=== PATIENT | female | born 1970 | race Caucasian/White ===

== ENCOUNTER 2017-08-24 09:04 | Emergency (ER) | payer BC, OTHER ==
[~2017-08-24] VITALS: Ht 157.5 cm; Wt 79.1 kg
[~2017-08-24 09:04] MED LIST: ASCA500 PO
[2017-08-24 09:13] VITALS: TEMP 36.8; Ht 157.5 cm; Wt 79.1 kg
[2017-08-24] MEDS ORDERED: IBUP-103 PO (09:45)
[2017-08-24] MEDS ORDERED: CETI10TA10 PO (09:45)
[2017-08-24] MEDS ORDERED: HYDR12.56 PO (09:45)
[2017-08-24] MEDS ORDERED: ETAN25IN2 INJ (09:50)
[2017-08-24 10:26] LABS: BASO % 0.5 %; BASO ABS # 0.03 K/uL (0-0.2); COMPLETE YES; EOS % 1.7 %; HEMATOCRIT 42.2 % (37-47); IG% 0.5 %; LYMPH % 31.1 %; LYMPH ABS # 1.96 K/uL (1.2-3.4); MEAN CELL VOLUME 91.3 fL (80-100); MEAN CORPUSCULAR HEMOGLOBIN 33.3 pg (25-34); MEAN CORPUSCULAR HGB CONC 36.5 g/dl (32-36); MEAN PLATELET VOLUME 10.8 fL (7.4-10.4); MONO % 7.4 %; NEUT % 58.8 %; PLATELET COUNT 255 K/uL (130-400); RED BLOOD COUNT 4.62 M/uL (4.2-5.4); WHITE BLOOD COUNT 6.31 K/uL (4.8-10.8)
--- NOTE | 2017-08-24 10:46 | DIAGNOSTIC IMAGING REPORT ---
CHEST 2 VIEWS ROUTINE HISTORY: left chest pain COMPARISON: None. FINDINGS: The lungs are clear. Cardiac silhouette is normal in size. No pleural effusions. No pneumothorax. Surgical clips within the right upper quadrant consistent with prior cholecystectomy. IMPRESSION: No acute process. Electronically signed by: Brandon Austin M.D. 08/24/2017 10:45 AM Dictated Date/Time: 08/24/2017 10:44 AM
[2017-08-24 10:49] LABS: ALT/SGPT 38 U/L (12-78); AST/SGOT 23 U/L (15-37); BLOOD UREA NITROGEN 6 mg/dl (7-18); BUN/CREATININE RATIO 7.5 (10-20); CALCIUM 8.7 mg/dl (8.5-10.1); CARBON DIOXIDE 26 mmol/L (21-32); CHLORIDE 104 mmol/L (98-107); CREATININE 0.83 mg/dl (0.60-1.20); GLUCOSE 99 mg/dl (70-99); POTASSIUM 3.5 mmol/L (3.5-5.1); SODIUM 140 mmol/L (136-145)
[2017-08-24 10:56] LABS: ALKALINE PHOSPHATASE 72 U/L (45-117)
[2017-08-24 11:13] LABS: LYME DISEASE AB IGG NEG (NEG); LYME DISEASE AB IGM NEG (NEG)
[2017-08-24 11:18] VITALS: BP 147/111; PULSE 81; O2SAT 97
--- NOTE | 2017-08-24 11:27 | EMERGENCY ROOM VISIT NOTE ---
History Report prepared by Asha: Shorty Bruce Under the Supervision of: Dr. Yareli Ansari D.O. First contact with patient: 09:29 Chief Complaint: NEURO SYMPTOMS Nursing Triage Summary: Symptoms started in july 2017. Has intermittent numbness/tingling in left side of chest. Denies CP or SOB. The numbness and tingling started last night while sitting watching TV. Pt continued to have the symptom this AM while at work. Denies radiation of numbness/tingling. Has worn a holter monitor in the past, no findings. History of Present Illness The patient is a 47 year old female who presents to the Emergency Room with complaints of intermittent chest "burning" and tingling beginning about a month ago. Her symptoms initially began while camping. The patient estimates that her episodes last for a few minutes at a time. She was seen at [facility] for her symptoms after her first episode. She was given a heart monitor for 72 hours after her second episode which was did not reveal anything abnormal. The patient had an episode of her symptoms last night, and another episode this morning. She was watching TV when her pain began. Her symptoms have not worsened in the past month. The patient denies back pain, abdominal pain, arm pain, diaphoresis, leg swelling, diarrhea, urinary symptoms, or shortness of breath. Her father had a heart attack at age 64. She is a smoker. The patient notes that she feel very panicked when her symptoms begin. She denies recent travel. She denies recent illness, or known sick contacts. The patient notes that she rarely has symptoms of GERD. Source of History: patient Onset: about a month ago Position: chest Quality: burning, other (tingling) Timing: intermittent Associated Symptoms: No diaphoresis, No chest pain, No SOB, No abdominal pain, No back pain, No diarrhea, No urinary symptoms Note: The patient denies arm pain, or leg swelling. Review of Systems See HPI for pertinent positives & negatives. A total of 10 systems reviewed and were otherwise negative. Past Medical & Surgical Medical Problems: (1) HTN (hypertension) Family History No pertinent family history stated. Social History Smoking Status: Current Every Day Smoker Housing Status: lives with family Current/Historical Medications Scheduled Cetirizine Hcl (Zyrtec), 10 MG PO DAILY Etanercept (Enbrel), 25 MG INJ WK Hydrochlorothiazide (Hctz), 12.5 MG PO DAILY Ibuprofen Tab (Advil), 600-800 MG PO QAM Allergies Coded Allergies: No Known Allergies (Unverified , 08/24/17) Physical Exam Vital Signs Date Time Temp Pulse Resp B/P (MAP) Pulse Ox O2 Delivery O2 Flow Rate FiO2 08/24/17 11:18 81 16 147/111 97 Room Air 08/24/17 10:06 86 129/100 97 Room Air 08/24/17 09:16 91 08/24/17 09:13 36.8 96 17 155/111 98 Room Air Physical Exam GENERAL: alert, well appearing, well nourished, no distress, non-toxic EYE EXAM: normal conjunctiva, PERRL and EOM's grossly intact OROPHARYNX: no exudate, no erythema, lips, buccal mucosa, and tongue normal and mucous membranes are dry. NECK: supple, no nuchal rigidity, no adenopathy, non-tender LUNGS: Clear to auscultation. Normal chest wall mechanics HEART: no murmurs, S1 normal and S2 normal CHEST: No reproducible chest wall tenderness. ABDOMEN: abdomen soft, non-tender, normo-active bowel sounds, no masses, no rebound or guarding. BACK: Back is symmetrical on inspection and there is no deformity, no midline tenderness, no CVA tenderness. SKIN: no rashes and no bruising UPPER EXTREMITIES: upper extremities are grossly normal. LOWER EXTREMITIES: No pitting edema. NEURO EXAM: Normal sensorium, cranial nerves II-XII grossly intact, normal speech, no gross weakness of arms, no gross weakness of legs. Medical Decision & Procedures ER Provider Diagnostic Interpretation: Radiology results have been interpreted by the radiologist and reviewed by me. CHEST 2 VIEWS ROUTINE FINDINGS: The lungs are clear. Cardiac silhouette is normal in size. No pleural effusions. No pneumothorax. Surgical clips within the right upper quadrant consistent with prior cholecystectomy. IMPRESSION: No acute process. Electronically signed by: Brandon Austin M.D. 08/24/2017 10:45 AM Laboratory Results 08/24/17 10:00 Red Blood Count 4.62, Mean Corpuscular Volume 91.3, Mean Corpuscular Hemoglobin 33.3, Mean Corpuscular Hemoglobin Concent 36.5, Mean Platelet Volume 10.8, Neutrophils (%) (Auto) 58.8, Lymphocytes (%) (Auto) 31.1, Monocytes (%) (Auto) 7.4, Eosinophils (%) (Auto) 1.7, Basophils (%) (Auto) 0.5, Neutrophils # (Auto) 3.71, Lymphocytes # (Auto) 1.96, Monocytes # (Auto) 0.47, Eosinophils # (Auto) 0.11, Basophils # (Auto) 0.03 08/24/17 10:00 Test 08/24/17 10:00 White Blood Count 6.31 K/uL (4.8-10.8) Red Blood Count 4.62 M/uL (4.2-5.4) Hemoglobin 15.4 g/dL (12.0-16.0) Hematocrit 42.2 % (37-47) Mean Corpuscular Volume 91.3 fL (80-100) Mean Corpuscular Hemoglobin 33.3 pg (25-34) Mean Corpuscular Hemoglobin Concent 36.5 g/dl (32-36) Platelet Count 255 K/uL (130-400) Mean Platelet Volume 10.8 fL (7.4-10.4) Neutrophils (%) (Auto) 58.8 % Lymphocytes (%) (Auto) 31.1 % Monocytes (%) (Auto) 7.4 % Eosinophils (%) (Auto) 1.7 % Basophils (%) (Auto) 0.5 % Neutrophils # (Auto) 3.71 K/uL (1.4-6.5) Lymphocytes # (Auto) 1.96 K/uL (1.2-3.4) Monocytes # (Auto) 0.47 K/uL (0.11-0.59) Eosinophils # (Auto) 0.11 K/uL (0-0.5) Basophils # (Auto) 0.03 K/uL (0-0.2) RDW Standard Deviation 41.1 fL (36.4-46.3) RDW Coefficient of Variation 12.3 % (11.5-14.5) Immature Granulocyte % (Auto) 0.5 % Immature Granulocyte # (Auto) 0.03 K/uL (0.00-0.02) Anion Gap 10.0 mmol/L (3-11) Est Creatinine Clear Calc Drug Dose 81.6 ml/min Estimated GFR () 97.3 Estimated GFR (Non- 84.0 BUN/Creatinine Ratio 7.5 (10-20) Calcium Level 8.7 mg/dl (8.5-10.1) Magnesium Level 2.0 mg/dl (1.8-2.4) Total Bilirubin 0.3 mg/dl (0.2-1) Aspartate Amino Transf (AST/SGOT) 23 U/L (15-37) Alanine Aminotransferase (ALT/SGPT) 38 U/L (12-78) Alkaline Phosphatase 72 U/L (45-117) Troponin I < 0.015 ng/ml (0-0.045) Total Protein 7.5 gm/dl (6.4-8.2) Albumin 3.7 gm/dl (3.4-5.0) Globulin 3.8 gm/dl (2.5-4.0) Albumin/Globulin Ratio 1.0 (0.9-2) Lipase 113 U/L (73-393) Thyroid Stimulating Hormone (TSH) 1.690 uIu/ml (0.300-4.500) Chemistry Specimen Hemolysis Lyme Disease IgG Antibody NEG (NEG) Lyme Disease IgM Antibody NEG (NEG) Laboratory results per my review. ECG Indication: chest pain Rate (beats per minute): 78 Rhythm: normal sinus Findings: no acute ischemic change, no ectopy, other (Normal axis. Normal intervals. ) ED Course 0935: The patient was evaluated in room B8. A complete history and physical exam was performed. 1122: Upon reevaluation, the patient is feeling better. I discussed the findings and the treatment plan with the patient. She verbalizes agreement and understanding. The patient was discharged home. Medical Decision Differential diagnosis: Etiologies such as cardiac ischemia, aortic dissection, pulmonary embolism, pneumonia, pneumothorax, musculoskeletal, infections, pericarditis, myocarditis , esophageal rupture, gastrointestinal, as well as others were entertained. HEART score 1 wells low risk and PERC negative Discussed possible ddx, discussed close f/u with PCP and discussion about possible cards eval for additional testing. Sx are brief, atypical, no other accompanying sx but seem to trigger anxiety, not caused by it. NO recent trauma , no recent URI. Doubt pericarditis/myocarditis/pleurisy. Pt well appearing here throughout, VS stable. Aware of all results, discussed sx to watch/return for, she verbalized understanding and was agreeable with plan. Medication Reconcilliation Current Medication List: was personally reviewed by me Blood Pressure Screening Patient's blood pressure: Elevated blood pressure Blood pressure disposition: Elevated BP felt to be situational Impression Primary Impression: Chest pain Additional Impression: Tobacco abuse Scribe Attestation The scribe's documentation has been prepared under my direction and personally reviewed by me in its entirety. I confirm that the note above accurately reflects all work, treatment, procedures, and medical decision making performed by me. Departure Information Dispostion Home / Self-Care Referrals Darrel Rossi M.D. (PCP) Patient Instructions My [facility] Additional Instructions Please call and follow-up with your family doctor. Please discuss with them referral to cardiology as a precaution given your family history. If you have any recurrent episodes, develop worsening or persistent pain, trouble breathing , fevers, vomiting, pain into your back or arm, dizziness, or you have any other new or concerning symptoms, please return to the emergency room. Please continue your efforts to quit smoking. Problem Qualifiers Primary Impression: Chest pain Chest pain type: unspecified Qualified Codes: R07.9 - Chest pain, unspecified
== END 2017-08-24 11:36 | disposition home or self-care (01) ==
LOC: EDBD 09:04 → C.EDB 09:05
DX: R07.9 Chest pain, unspecified (principal); F17.200 Nicotine dependence, unspecified, uncomplicated; I10 Essential (primary) hypertension; Z82.49 Family history of ischemic heart disease and other diseases of the circulatory system; Z79.1 Long term (current) use of non-steroidal anti-inflammatories (NSAID)

== ENCOUNTER 2024-11-27 20:17 | Observation (INO) ==
--- OUTSIDE RECORDS SUMMARY | 2024-11-27 20:21 | External Medical Summary | Summary of Care ---
Author Name Unknown Organization [facility] Address [address] [facility] [place] [address] Phone [phone] Care Team Providers Care Ribbing Machine Operator Name Role Phone Ana Luisa Singletary Primary Care Provider Reason for Visit * Reason Comments Follow Up 6 months for psorias is, no concerns Encounter Details Date Type Department Care Team (Late st Contact Info) Description 06/01/2024 11:00 AM EDT Office Visit Dermatology [address] [place] [address] Alison Encinas PA-C [address] [place] [address] [place] [id number] Medication monitoring encounter* Allergies No known active allergiesdocumented as of this encounter (statuses as of 06/01/2024) Medications Medication Sig Dispensed Refills Start Date End Date Status ADVIL 200 MG PO CAPS 1-2 caps every 6 hours as needed Active Betamethasone Dipropionate 0.05 % External OintmentIndication s:Plaque psoriasis Apply 2x daily (or more if itchy instead of scratching) scalp/elbows/R hand/L ankle psoriasis lesions until resolved 50 g 1 02/10/2022 Active Vitamin D 25 MCG (1000 UT) Oral Tablet Take by mouth . 10/13/2022 Active Vitamin C 500 MG Oral Capsule Take by mouth . 10/13/2022 Active Vitamin B-12 50 MCG Oral Tablet (vitamin B-12) Take by mouth . 10/13/2022 Activ e Zinc 15 66 MG Oral Tablet (Zinc Sulfate) Take by mouth . 10/13/2022 Active hydroCHLOROthiazid e 12.5 MG Oral CapsuleIndications :Essential hypertension with goal blood pressure less than 140/90 Take 1 Capsule by mouth in the morning. 90 Capsule 3 03/21/2024 Active Anoro Ellipta 62.5-25 MCG/ACT Inhalation Aerosol Powder Breath Activated (umeclidinium-natanael nterol)Indications :COPD, severity to be determined (HCC) Inhale 1 Puff by mouth in the morning. 90 Each 2 05/03/2024 Active Albuterol Sulfate HFA 108 (90 Base) MCG/ACT Inhalation Aerosol Solution INHALE TWO PUFFS EVERY FOUR HOURS NEEDED FOR WHEEZING 18 g 1 05/17/2024 Active Humira (2 Pen) 40 MG/0.8ML Subcutaneous Pen-injector Kit (Adalimumab)Indica tions:Scalp psoriasis,Plaque psoriasis,Psoriasi s of nail INJECT 40MG SUBCUTANEOUSLY EVERY OTHER WEEK 2 Each 6 05/18/2024 Active Hospital, Clinic, or Other Facility Administered Medication Ordered Dose Route Frequency Start Date End Date Status albuterol sulfate (PROVENTIL) (2.5 MG/3ML) 0.083% inhalation solution 2.5 mgIndications:Tobacco use disorder 2.5 mg NEBULIZER Q4H PRN 06/02/2017 Active documented as of this encounter (statuses as of 06/01/2024) Active Problems Problem Noted Date Diagnosed Date Occasionally uses seat belts 04/19/2024 COPD, group B, by GOLD 2017 classification 05/18 Overview: Per COPD GOLD Classification Dupuytren's disease of palm of left hand 023 Lump in neck 03/06/2021 Nodule of left palm 03/06/2021 Fatty liver 12/07/2018 Abnormal hepatitis serology 12/07/2018 Family history of ischemic heart disease 017 Scalp psoriasis 04/29/2017 HTN, goal below 130/80 06/23/2016 Plaque psoriasis 10/03/2015 Sensorineural hearing loss 09/04/2005 Overview: Had hearing evaluation, got hearing aids Irritable bowel syndrome wit h both constipation and diarrhea 08/25/2005 Subjective tinnitus 08/25/2005 Tobacco use disorder 10/18/2002 documented as of this encounter (statuses as of 06/01/2024) Resolved Problems Problem Noted Date Diagnosed Date Resolved Date COPD, group A, by GOLD 2017 classification 03/19/2021 05/21/2023 Overview: Per COPD GOLD Classification Nodule of left palm 03/06/2021 04/09/20 COPD, moderate 05/28/2018 03/21/2021 Overview: Per COPD GOLD Classification Scalp psoriasis 03/15/2014 10/01/2016 Overview: Scalp (2012-present) Retinal detachment with retinal defect 08/11/2013 11/20/2017 Overview: OS small localized tear, Dr Eaton ICD-10 update of inactive term Patellofemoral syndrome 08/31/200703/05 Dysmenorrhea 08/25/2005 05/28/2018 Vitreous degeneration 2017 documented as of this encounter (statuses as of 06/01/2024) Immunizations Name Administration Dates Next Due PPD 10/08/2015 Pneumococcal Conjugate Vacc, 13 Valent (Prevnar) 10/09/2021 Pneumococcal Polysaccharide PPV23 (Pneumovax) ,01/23/2009 TDAP (age 10 and older)(Boostrix) 05/28/2018 TDAP, Age 7 and older, IM (Adacel) 03/31/2008 documented as of this encounter Social History Tobacco Use Types Packs/Day Years Used Date Smoking Tobacco: Every Day Cigarettes 0.5 29 Smokeless Tobacco: Never Comments:Currently under 1/2 pack/daily Alcohol Use Standard Drinks/Week Comments Yes 0 (1 standard drink = 0.6 oz pur e alcohol) occ twice monthly approx AUDIT-C Answer Date Recorded Frequency of Alcohol Consumption 2-4 times a thu10/11/2018 Average Number of Drinks 3 or 4 019 Frequency of Binge Drinking Never 04/2019 PHQ-2 Answer Date Recorded PHQ Adult Total Score 0 03/06/2021 Hunger Vital Sign Answer Date Recorded Within the past 12 months, y ou worried that your food would run out before you got the money to buy more. Never true 04/13/20 23 Within the past 12 months, t he food you bought just didn't last and you didn't have money to get more. Never true 04/13/2023 Childcare Answer Date Recorded Do you feel overwhelmed with taking care of a child, family member or friend? No 04/13/2023 Does your family need help f inding childcare? (Household - for ages 0-17 years) Not on file 04/13/2023 Clothing Answer Date Recorded Have you been unable to get clothing when it was really needed? No 04/13/2023 Is your family able to get c lothes or diapers when needed? (Household - for ages 0-17 years) Not on file 04/13/2023 Personal Safety Answer Date Recorded Do you feel unsafe or have concerns for your saf ety? No 04/13/2023 Do you have concerns for you r family's safety? (Household - for ages 0-17 years) Not on file 04/13/2023 Utilities Answer Date Recorded Do you have trouble paying y our heating, water, or electric bill? (Adult - for ages 18 years and over) Not on file 04/18/2024 Is your family able to pay t he heat, water, or electric bill? (Household - for ages 0-17 years) Not on file 04/18/2024 Does your family have access to good internet? (Household - for ages 0-17 years) Not on file 04/18/2024 Employment Status Answer Date Recorded Are you unemployed or without regular income? No 04/13/2023 Does the household have a re gular source of income? (Household - for ages 0-17 years) Not on file 04/13/2023 Social Connections Answer Date Recorded How often do you feel lonely or isolated from those around you? (Adult - for ages 18 years and over) Not on file 04/18/2024 Financial Resource Strain Answer Date R ecorded Do you have any trouble payi ng for your medications, or do you think you might in the future? No 04/13/2023 Does your family have troubl e paying for medicine? (Household - for ages 0-17 years) Not on file 04/13/2023 Transportation Needs Answer Date Record ed READ ONLY Do you have troubl e getting a ride to medical visits or work? Never True 04/13/2023 Does your family have a hard time getting a ride to doctors visits? (Household - for ages 0-17 years) Not on file 04/13/2023 Has lack of transportation k ept you from medical appointments, meetings, work, or from getting things needed for daily living? Check all that apply. (Adult - for ages 18 years and over) Not on file 04/13/2023 Do you (or your family) have trouble finding or paying for a ride (transportation)? (Household - for ages 0-17 years) Not on file 04/13/2023 Housing Stability Answer Date Recorded Do you currently live in a s helter or have no steady place to sleep at night? No 04/13/2023 READ ONLY Do you think you a re at risk of becoming homeless? No 04/13/2023 Does your family worry about paying for your home or becoming homeless? (Household - for ages 0-17 years) Not on file 0 04/13/2023 Are you homeless or worried that you might be in the future? (Adult - for ages 18 years and over) Not on file Are you (or your family) neeta eless or worried that you might be in the future? (Household - for ages 0-17 years) Not on file Food Insecurity Answer Date Recorded Do you need food for this week? No 04/13/2023 Are you able to get enough f ood for your family? (Household - for ages 0-17 years) Not on file 04/13/2023 Does your family need food t his week? (Household - for ages 0-17 years) Not on file 04/13/2023 Do you always have enough fo od for your family? (Household - for ages 0-17 years) Not on file 04/13/2023 Sex and Gender Information Value Date Recorded Sex Assigned at Female 02/08/2022 11:14 AM EDT Gender Identity Female 02/08/2022 11:14 AM EDT Sexual Orientation Straight 02/08/2022 11 :14 AM EDT Job Start Date Occupation Industry Not on file Not on file Not on file documented as of this encounter Patient Instructions * Patient Instructions* Alison Encinas PA-C - 06/01/2024 11:01 AM EDT Will start Humira (adalimumab) with a loading dose of 80mg followed by 40mg every other week starting one week after the initial loading dose. Need baseline labs: CBC, CMP, quanterferon gold (instead of PPD). For monitoring:CBC, CMP every 6 months, annual quanterferon gold, HIV, RPR, acute hepatitis panel drawn. Advised that pt to call if prolonged fever or persistent cough. Asked to skip an injection if pt has an infection that requires antibiotics but to resume injections once the antibiotic course is completed. Advised pt not receive any LIVE vaccinations. Explained the most common side effect is injection site reaction and that injection site reactions will decrease over time. Pt can use warm compresses to the area and wait to reuse the site once the area is no longer inflamed. Discussed theoretical increased risk of malignancy. Asked pt to use sun protection. Also explained extremely rare risk of developing congestive heart failure, liver failure, bone marrow problems, or a nervous system disorder. Pt needs to be seen every 6 months for follow up. The side effects of chronic topical steroid use were discussed with patient and include but are notlimited to telangiectasia (broken blood vessels), striae (stretch vital), atrophy (thin skin), purpura (bruising), allergic contact dermatitis, acneiform eruptions and medicine addiction (rebound rash after cessation), cataracts, suppression of the bodys ability to create its own cortisol, weight gain, poor height growth, and high blood sugar. Advocated avoidance of use nears eyes (glaucoma and cataracts) and skin folds (enhanced effect = atrophy) unless otherwise directed. Advised to use the medication only as needed. Our plan will alwaysbe to use the lowest potency possible and to use a regimen that employs intermittent rather than constant use of topical steroids. If the rash clears then stop and transition to CERAVE CREAM for maintenance. documented in this encounter Progress Notes * Alison Encinas PA-C - 06/01/2024 11:00 AM EDT SUBJECTIVE: History of Present Illness: Liana Morejon is a 54 year old female seen today for follow up of psoriasis. Previous office visit: 11/18/2023 Last attempted treatments include: Humira 40mg SC QOW, betamethasone dip ointment QD-BID prn (not using). No SOB, no prolonged coughs, no prolonged fevers, no surgeries planned, no chronic antibiotics needed. Pt knows not to get live vaccines. Psoriasis has been doing very well, skin lesions have remained resolved, some joint pains in thumbs(started 2+ months ago)- works with hands/thumbs all the time at work. full skin exam 11/28, basic labs + Quant gold negative on 04/29/24. REVIEW OF SYSTEMS: SKIN: No other new or changing moles. HEME/LYMPH: No new or enlarging lumps or bumps. CONSTITUTIONAL: No nausea, vomiting, fevers, chills, diarrhea. No recent unintended weight loss, night sweats, appetite or malaise. RESP: negative MSK/EXT: Negative or as per HPI GI: negative CV: Negative or as per HPI Rest of systems are negative or as per HPI SKIN CANCER HX: NONE Reviewed, same day as visit, 0 [facility] Dermatology lab work(s)/pathology report(s) as well as those sent by referring provider prior to seeing pt. MEDICA TIONS: Current Outpatient Medications Medication Sig Dispense Refill ADVIL 200 MG PO CAPS 1-2 caps every 6 hours as needed Betamethasone Dipropionate 0.05 % External Ointment Apply 2x daily (or more if itchy instead of scratching) scalp/elbows/R hand/L ankle psoriasis lesions until resolved 50 g 1 Vitamin D 25 MCG (1000 UT) Oral Tablet Take by mouth . Vitamin C 500 MG Oral Capsule Take by mouth . Vitamin B-12 50 MCG Oral Tablet (vitamin B-12) Take by mouth . Zinc 15 66 MG Oral Tablet (Zinc Sulfate) Take by mouth . hydroCHLOROthiazide 12.5 MG Oral Capsule Take 1 Capsule by mouth in the morning. 90 Capsule 3 Anoro Ellipta 62.5-25 MCG/ACT Inhalation Aerosol Powder Breath Activated (umeclidinium-vilanterol) Inhale 1 Puff by mouth in the morning. 90 Each 2 Albuterol Sulfate HFA 108 (90 Base) MCG/ACT Inhalation Aerosol Solution INHALE TWO PUFFS EVERY FOURHOURS NEEDED FOR WHEEZING 18 g 1 Humira (2 Pen) 40 MG/0.8ML Subcutaneous Pen-injector Kit (Adalimumab) INJECT 40MG SUBCUTANEOUSLY EVERY OTHER WEEK 2 Each 6 Current Facility-Administered Medications Medication Dose Route Frequency Provider Last Rate Last Admin albuterol sulfate (PROVENTIL) (2.5 MG/3ML) 0.083% inhalation solution 2.5 mg 2.5 mg Nebulizer Q4H PRN Ana Luisa Singletary DO 2.5 mg at 06/02/17 1512 ALLERG IES: Patient has noknown allergies. OBJECT AMADOR: GEN: alert, no distress, appears oriented, pleasant and cooperative. SKIN: Detailed exam of hair, face including lids and lips, neck, chest, abdomen, back, bilateral upper ext. (arm, hand, fingers), bilateral lower ext. (leg, foot, toes), palpation of scalp, fingernail czech present, toenail czech present, inguinal areas, groin (mons pubis), buttocks and anus completed: 1. Scalp/generalized body/nails (nail czech present)-No evidence of any psoriatic plaques or nail changes. ASSESSMENT/PLAN: 1. Scalp/plaque/nails psoriasis, resolved-BSA: 0%, Special Site: None; Status: resolved . -Continue Humira 40mg SC QOW. -Use betamethasone dip ointment QD-BID prn for any new lesions that appear. -Will draw remainder of comprehensive labs today, will touch base with patient with results. -Pt will plan on reaching out to pcp to determine if thumb pain is OA vs PsA since she would not like to switch off Humira since working well for cutaneous and other joint dz. -Side effects of each medication discussed and treatment regimen written and printed on checkout sheet. Patient alone today. Photo(s) of #1-3 taken, pt verbally consented to having photo(s) taken. Follow-up: 6 months for full skin exam/psoriasis f/u Sent pt results through [employer]. Applicable photos (if any) and chart reviewed by Dr. Javon Vital. Presumed diagnoses, expected natural histories, and management options discussed with the patient at length. Questions were addressed and anticipatory guidance provided. They were instructed to contact me if additional questions, concerns, or problems develop in the interim. -There were no barriers to learning and no other pain was related to today's visit. The patient and/or person accompanying patient demonstrates understanding of the visit and treatment. Alison Encinas PA-C 06/01/2024 11:01 AM Dermatology [address] [place] [id number] documented in this encounter Nursing Notes * Pamela Walter LPN - 06/01/2024 10:53 AM EDT Patient identified by full name and date of . Chief Complaint Patient presents with Follow Up 6 months for psoriasis, no concerns documented in this encounter Plan of Treatment Upcoming Encounters Date Type Department Care Team (Late st Contact Info) Description 11/01/2024 3:30 PM EST Imaging Radiology [address] [place] [id number] 12/07/2024 11:40 AM EST Office Visit Dermatology [address] [place] [address] Alison Encinas PA-C [address] [place] [address] [place] [id number] 05/19/2025 2:10 PM EDT Office Visit Family Medicine [address] [place] [address] Ana Luisa Singletary DO [address] [place] [address] [place] [address] Pending Results Name Type Priority Associated Diagnoses Date /Time HIV ANTIGEN & ANTIBODY SCREEN W/ CONFIRMATION Lab Routine Medication monitoring encounter 06/01/2024 11:15 AM EDT SYPHILIS ANTIBODY SCREEN WITH REFLEX TO RPR Lab Routine Medication monitoring encounter 06/01/2024 11:15 AM EDT ACUTE HEPATITIS PANEL Lab Routine Medication monitoring encounter 06/01/2024 11:15 AM EDT HEPATITIS B SURFACE ANTIBODY Lab Routine Medication monitoring encounter 06/01/2024 11:15 AM EDT Scheduled Orders Name Type Priority Associated Diagnoses Orde r Schedule HIV ANTIGEN & ANTIBODY SCREEN W/ CONFIRMATION Lab Routine Medication monitoring encounter Expected: 06/15/2024 (Approximate), Expires: 06/01/2025 SYPHILIS ANTIBODY SCREEN WITH REFLEX TO RPR Lab Routine Medication monitoring encounter Expected: 06/15/2024 (Approximate), Expires: 06/01/2025 ACUTE HEPATITIS PANEL Lab Routine Medication monitoring encounter Expected: 06/15/2024 (Approximate), Expires: 06/01/2025 HEPATITIS B SURFACE ANTIBODY Lab Routine Medication monitoring encounter Expected: 06/15/2024 (Approximate), Expires: 06/01/2025 Scheduled Procedures Name Priority Associated Diagnoses Date/Ti me COLONOSCOPY FLEXIBLE PROXIMAL DIAGNOSTIC Recall History of colon polyps Health Maintenance Due Date Last Done Comments DISCUSS TOBACCO CESSATION (REFER TO SMARTSET #3291) 1970 COVID-19 Vaccine (#1) 1975 Hepatitis B Vaccine (1 of 3 - 19+ 3-dose series) 1989 Zoster Vaccines (1 of 2) 1989 Cologuard 2015 Fecal Occult Blood Test 2015 Sigmoidoscopy 2015 Depression Screening 03/06/2022 03/06/2021 Influenza Vaccine (FLU shot) (#1) 2024 Colonoscopy 08/25/2024 08/25/2019, 08/25/2019 Colorectal Cancer Screening 08/25/2024 Mammogram 10/28/2024 10/28/2023, 10/05, 10/24/2021, Additional history exists GFR 04/29/2025 04/29/2024, 11/05, 04/13/2023, Additional history exists O2 ASSESSMENT COMPLETED IN PAST YEAR FOR COPD 05/17/2025 05/17/2024 Albumin/Creatinine Ratio 10/13/2025 10/13/2022 Pap Smear 10/20/2025 10/20/2022, 04/2019, 09/15/2016, Additional history exists Lipid Panel 05/29/2026 05/29/2021, 07/10/2016 Diabetes Screening 04/29/2027 04/29/2024, 0 11/18/2023, 04/13/2023, Additional history exists Cervical Cancer Screening 10/20/2027 HPV/Co-Test 10/20/2027 10/20/2022 DTap/Tdap Vaccines (3 - Td or Tdap) 05/28/2028 05/28/2018, 03/31/2008 Pneumococcal Vaccine: Pediatrics (0 to 5 Years) and At-Risk Patients (6 to 64 Years) (4 of 4 - PPSV23 or PCV20) 2035 10/09/2021, 05/12/2017, 01/23/2009 Alpha-1 Antitrypsin Completed 11/18/2018 RETIRED - COLONOSCOPY-EVERY 5 YRS AGES 18-100 Discontinued 08/25/2019, 08/25/2019 Hepatitis C Screening Completed 04/13/2023 , 02/10/2022, 11/28/2020, Additional history exists HPV (Gardasil) Vaccine Aged Out No lo nger eligible based on patient's age to complete this topic MENINGOCOCCAL (MENACTRA/MENVEO) Aged Out No longer eligible based on patient's age to complete this topic documented as of this encounter Medical Devices Not on filedocumented as of this encounter Procedures Procedure Name Priority Date/Time Associated Diagnosis Comments DERM EXAM - DERM (IMAGES ONLY, NO REPORT) Routine 06/01/2024 11:00 AM EDT Medication monitoring encounter documented in this encounter Results * DERM EXAM - DERM (IMAGES ONLY, NO REPORT) (06/01/2024 11:00 AM EDT) Narrative Scheduling, Silent - 06/01/2024 11:00 AM EDT This is an imaging study not interpreted or resulted by a [facility] or [facility] contracted radiologist. Alison Encinas PA-C RADIOLOGY (RAD GENERAL) documented in this encounter Visit Diagnoses Diagnosis Medication monitoring encounter- Primary Encounter for therapeutic drug monitoring documented in this encounter Care Teams Ribbing Machine Operator Relationship Specialty Start Date End Date An aLuisa Singletary DO [address] [place] [address] [place] [id number] PCP - General Internal Medicine 06/23/16 documented as of this encounter
--- OUTSIDE RECORDS SUMMARY | 2024-11-27 20:21 | External Medical Summary ---
Author Name Unknown Address Unknown Organization [id number] [address] [place] [address] Laboratory Report Ordering Provider Test Date Status RAHEL ABERNATHY 06/01/2024 11:15:57 Final Observation Date Value Abnormality Reference (Units ) Status Hep A IgM 06/01/2024 11:15:57 Negative Negative Final Hep B Core IgM 06/01/2024 11:15:57 Negative Negat solomon Final Hep B surface Ag 06/01/2024 11:15:57 Negative Neg ative Final Hep C Ab 06/01/2024 11:15:57 Negative Negative Final Performing Location [facility] - [address] [place] [address]
--- OUTSIDE RECORDS SUMMARY | 2024-11-27 20:21 | External Medical Summary | Summary of Care ---
Author Name Unknown Organization [facility] Address [address] [place] [address] Phone [phone] Care Team Providers Care Reproductive Endocrinologist Name Role Phone Ana Luisa Singletary Primary Care Provider Reason for Visit * Reason Onset Date Comments Med Request 11/10/2024 Advice 11/10/2024 Encounter Details Date Type Department Care Team (Late st Contact Info) Description 11/10/[address] [place] [address] Services, Scheduling [address] [place] [address] Med Request; Advice Allergies No known active allergiesdocumented as of this encounter (statuses as of 11/14/2024) Medications ADVIL 200 MG PO CAPS 1-2 caps every 6 hours as needed Active Betamethasone Dipropionate 0.05 % External OintmentIndicati ons:Plaque psoriasis Apply 2x daily (or more if itchy instead of scratching) scalp/elbows/R hand/L ankle psoriasis lesions until resolved 50 g 1 02/11/20 22 Active Vitamin D 25 MCG (1000 UT) Oral Tablet Take by mouth . 10/13/19 23 Active Vitamin C 500 MG Oral Capsule Take by mouth . 10/13/19 23 Active Vitamin B-12 50 MCG Oral Tablet (vitamin B-12) Take by mouth . 10/13/19 23 Active Zinc 15 66 MG Oral Tablet (Zinc Sulfate) Take by mouth . 10/13/19 23 Active hydroCHLOROthiaz sharyn 12.5 MG Oral CapsuleIndicatio ns:Essential hypertension with goal blood pressure less than 140/90 Take 1 Capsule by mouth in the morning. 90 Capsule 3 03/21/20 24 Active Anoro Ellipta 62.5-25 MCG/ACT Inhalation Aerosol Powder Breath Activated (umeclidinium-vi lanterol)Indicat ions:COPD, severity to be determined (HCC) Inhale 1 Puff by mouth in the morning. 90 Each 2 05/03/20 24 Active Albuterol Sulfate HFA 108 (90 Base) MCG/ACT Inhalation Aerosol Solution INHALE TWO PUFFS EVERY FOUR HOURS NEEDED FOR WHEEZING 18 g 1 05/17/20 24 Active Yusimry 40 MG/0.8ML Subcutaneous Solution Auto-injector (Adalimumab-aqvh ) INJECT 40MG SUBCUTANEOUSLY EVERY OTHER WEEK 2 Pen 6 11/02/19 25 Active Hospital, Clinic, or Other Facility Administered Medication Ordered Dose Route Frequency Start Date End Date Status albuterol sulfate (PROVENTIL) (2.5 MG/3ML) 0.083% inhalation solution 2.5 mgIndications:Tobacco use disorder 2.5 mg NEBULIZER Q4H PRN 06/02/2017 Active documented as of this encounter (statuses as of 11/14/2024) Active Problems Problem Noted Date Diagnosed Date [...] Plaque psoriasis 10/03/2015 Sensorineural hearing loss 09/04/2005 Overview (05/28/2018): Had hearing evaluation, got hearing aids Irritable bowel syndrome wit h both constipation and diarrhea 08/25/2005 Subjective tinnitus 08/25/2005 Tobacco use disorder 10/18/2002 documented as of this encounter (statuses as of 11/14/2024) Resolved Problems Problem Noted Date Diagnosed Date Resolved Date COPD, group A, by GOLD 2017 classification 03/19/2021 05/21/2023 Overview: Per COPD GOLD Classification Nodule of left palm 03/06/2021 04/09/20 22 COPD, moderate 05/28/2018 03/21/2021 Overview: Per COPD GOLD Classification Scalp psoriasis 03/15/2014 10/01/2016 Overview (10/03/2015): Scalp (2012-present) Retinal detachment with retinal defect 08/11/2013 11/20/2017 Overview (07/14/2023): OS small localized tear, Dr Eaton ICD-10 update of inactive term Patellofemoral syndrome 08/31/200703/05 Dysmenorrhea 08/25/2005 05/28/2018 Vitreous degeneration 2017 documented as of this encounter (statuses as of 11/14/2024) Immunizations Name Administration Dates Next Due PPD [...] y our heating, water, or electric bill? No 04/13/2023 Is your family able to pay t he heat, water, or electric bill? (Household - for ages 0-17 years) Not on file 04/13/2023 Does your family have access to good internet? (Household - for ages 0-17 years) Not on file 04/13/2023 Employment Status Answer Date Recorded Are you unemployed or without regular income? No 04/13/2023 Does the household have a re gular source of income? (Household - for ages 0-17 years) Not on file 04/13/2023 Social Connections Answer Date Recorded How often do you feel lonely or isolated from th ose around you? Never 04/13/2023 Financial Resource Strain Answer Date R ecorded [...] ages 0-17 years) Not on file 04/13/2023 Comments No Sex and Gender Information Value Date Recorded Sex Assigned at Female 02/08/2022 11:14 AM EDT Legal Sex Female 5:27 AM EST Gender Identity Female 02/08/2022 11:14 AM EDT Sexual Orientation Straight 02/08/2022 11 :14 AM EDT documented as of this encounter Miscellaneous Notes * Telephone Encounter - Alison Encinas PA-C - 11/14/2024 8:44 AM EST Patient needs a maintenance dose. Please let the pharmacy know. Alison BERNAL PA-C * Telephone Encounter - Alison Encinas PA-C - 11/14/2024 7:57 AM EST Will discuss with pharmacy since switching to a new medication, although similar to previous one. Alison BERNAL PA-C * Telephone Encounter - Sendy Krishnan OSA - 11/11/2024 10:06 AM EST [facility] calling back to confirm rx details, they want to confirm if the pt would need starter or maintenance dose. Call back number: [phone] Thank you * Telephone Encounter - Lili Murphy OSA - 11/10/2024 2:09 PM EST [facility] Chao calling in regards to medicine Yusimry 40 MG/0.8ML Subcutaneous Solution Auto-injector and pharmacist has a question. Please call [facility] at [phone] Thank you. documented in this encounter Plan of Treatment Upcoming Encounters Date Type Department Care Team (Late st Contact Info) Description 12/07/2024 11:40 AM EST Office Visit Dermatology [address] [place] [address] Alison Encinas PA-C [address] [place] [address] [place] [address] 05/19/2025 2:10 PM EDT Office Visit Family Medicine [address] [place] [phone] [place] Ana Luisaadelita Stone[address] [place] [address] 11/03/2025 3:30 PM EST Imaging Radiology [address] [place] [address] Scheduled Procedures Name Priority Associated Diagnoses Date/Ti me COLONOSCOPY FLEXIBLE PROXIMAL DIAGNOSTIC Recall History of colon polyps Health Maintenance Due Date Last Done Comments DISCUSS TOBACCO CESSATION (REFER TO SMARTSET #0390) 1970 Hepatitis B Vaccine (1 of 3 - 19+ 3-dose series) 1989 Cologuard 2015 Fecal Occult Blood Test 2015 Sigmoidoscopy 2015 Zoster Vaccines (1 of 2) 02/02/2020 Depression Screening 03/06/2022 03/06/2021 COVID-19 Vaccine ( - season) 2024 Influenza Vaccine (FLU shot) (#1) 2024 Colonoscopy 08/25/2024 08/25/2019, 08/25/2019 Colorectal Cancer Screening 08/25/2024 GFR 04/29/2025 04/29/2024, 11/05, 04/13/2023, Additional history exists O2 ASSESSMENT COMPLETED IN PAST YEAR FOR COPD 05/17/2025 05/17/2024 Albumin/Creatinine Ratio 10/13/2025 10/13/2022 Pap Smear 10/20/2025 10/20/2022, 04/2019, 09/15/2016, Additional history exists Mammogram 11/01/2025 11/01/2024, 10/06, 10/22/2022, Additional history exists Lipid Panel 05/29/2026 05/29/2021, 07/10/2016 Pneumococcal Vaccine: 50+ Years (3 of 3 - PCV20 or PCV21) 10/09/2026 10/09/2021, 05/12/2017, 01/23/2009 Diabetes Screening 04/29/2027 04/29/2024, 0 11/18/2023, 04/13/2023, Additional history exists Cervical Cancer Screening 10/20/2027 HPV/Co-Test 10/20/2027 10/20/2022 DTap/Tdap Vaccines (3 - Td or Tdap) 05/28/2028 05/28/2018, 03/31/2008 Alpha-1 Antitrypsin Completed 11/18/2018 RETIRED - COLONOSCOPY-EVERY 5 YRS AGES 18-100 Discontinued 08/25/2019, 08/25/2019 Hepatitis C Screening Completed 06/01/2024 , 04/13/2023, 02/10/2022, Additional history exists HPV (Gardasil) Vaccine Aged Out No lo nger eligible based on patient's age to complete this topic MENINGOCOCCAL (MENACTRA/MENVEO) Aged Out No longer eligible based on patient's age to complete this topic documented as of this encounter Medical Devices Not on filedocumented as of this encounter Care Teams Reproductive Endocrinologist Relationship Specialty Start Date End Date Ana Luisa Singletary DO [address] [place] [address] [place] [address] PCP - General Internal Medicine 06/23/16 documented as of this encounter
--- OUTSIDE RECORDS SUMMARY | 2024-11-27 20:21 | External Medical Summary | Summary of Care ---
Author Name Unknown Organization [facility] Address [address] [place] [address] Phone [phone] Care Team Providers Care Underwriting Specialist Name Role Phone Ana Luisa Singletary Primary Care Provider [phone] Reason for Visit * Reason Comments eRx-Medication Refill Encounter Details Date Type Department Care Team (Late st Contact Info) Description 05/18/[address] [address] Michela Encinas PA-C [address] [place] [address] [place] [address] Scalp psoriasis; Plaque psoriasis; Psoriasis of nail Allergies No known active allergiesdocumented as of this encounter (statuses as of 10/26/2024) Medications ADVIL 200 MG PO CAPS 1-2 caps every 6 hours as needed Active Betamethasone Dipropionate 0.05 % External OintmentIndicat ions:Plaque psoriasis Apply 2x daily (or more if itchy instead of scratching) scalp/elbows/R hand/L ankle psoriasis lesions until resolved 50 g 1 022 Active Vitamin D 25 MCG (1000 UT) Oral Tablet Take by mouth . 023 Active Vitamin C 500 MG Oral Capsule Take by mouth . 023 Active Vitamin B-12 50 MCG Oral Tablet (vitamin B-12) Take by mouth . 023 Active Zinc 15 66 MG Oral Tablet (Zinc Sulfate) Take by mouth . 023 Active hydroCHLOROthia zide 12.5 MG Oral CapsuleIndicati ons:Essential hypertension with goal blood pressure less than 140/90 Take 1 Capsule by mouth in the morning. 90 Capsule 3 024 Active Anoro Ellipta 62.5-25 MCG/ACT Inhalation Aerosol Powder Breath Activated (umeclidinium-v ilanterol)Indic ations:COPD, severity to be determined (HCC) Inhale 1 Puff by mouth in the morning. 90 Each 2 024 Active Albuterol Sulfate HFA 108 (90 Base) MCG/ACT Inhalation Aerosol Solution INHALE TWO PUFFS EVERY FOUR HOURS NEEDED FOR WHEEZING 18 g 1 024 Active Humira (2 Pen) 40 MG/0.8ML Subcutaneous Pen-injector Kit (Adalimumab)Ind ications:Scalp psoriasis,Plaqu e psoriasis,Psori asis of nail INJECT 40MG SUBCUTANEOUSLY EVERY OTHER WEEK 2 Each 6 024 Active Humira Pen 40 MG/0.8ML Subcutaneous Pen-injector Kit (Adalimumab)Ind ications:Scalp psoriasis,Plaqu e psoriasis,Psori asis of nail INJECT 40MG SUBCUTANEOUSLY EVERY OTHER WEEK 2 Each 6 024 2023 Discontinued Hospital, Clinic, or Other Facility Administered Medication Ordered Dose Route Frequency Start Date End Date Status albuterol sulfate (PROVENTIL) (2.5 MG/3ML) 0.083% inhalation solution 2.5 mgIndications:Tobacco use disorder 2.5 mg NEBULIZER Q4H PRN 06/02/2017 Active documented as of this encounter (statuses as of 10/26/2024) Active Problems Problem Noted Date Diagnosed Date [...] as of this encounter (statuses as of 10/26/2024) Resolved Problems Problem Noted Date Diagnosed Date [...] as of this encounter (statuses as of 10/26/2024) Immunizations Name Administration Dates Next Due PPD [...] encounter Miscellaneous Notes * Telephone Encounter - Michela Encinas PA-C - 05/18/2024 9:49 AM EDT Signed Prescriptions: Disp Refills Humira (2 Pen) 40 MG/0.8ML Subcutaneous Pe*2 Each 6 Sig: INJECT 40MG SUBCUTANEOUSLY EVERY OTHER WEEKAuthorizing Provider: MICHELA ENCINAS * Telephone Encounter - Pamela Walter LPN - 05/18/2024 9:06 AM EDTPending Prescriptions: Disp Refills Humira (2 Pen) 40 MG/0.8ML Subcutaneous Pe*2 Each 6 Sig: [id number] SUBCUTANEOUSLY EVERY OTHER WEEK documented in this encounter Plan of Treatment Upcoming Encounters Date Type Department Care Team (Late st Contact Info) Description 11/01/2024 3:30 PM EST Imaging Radiology [address] [place] [address] 12/07/2024 11:40 AM EST Office Visit Dermatology [address] [place] [address] Michela Encinas PA-C [address] [place] [address] [place] [address] 05/19/2025 2:10 PM EDT Office Visit Family Medicine [address] [place] [phone] Ana Luisa Singletary, [address] [place] [address] Scheduled Procedures Name Priority Associated Diagnoses Date/Ti me COLONOSCOPY FLEXIBLE PROXIMAL DIAGNOSTIC Recall History of colon polyps Health Maintenance Due Date Last Done Comments DISCUSS TOBACCO CESSATION (REFER TO SMARTSET #3636) 1970 COVID-19 Vaccine (#1) 1975 Hepatitis B [...] 05/29/2026 05/29/2021, 07/10/2016 Pneumococcal Vaccine: 50+ Years (4 of 4 - PCV20 or PCV21) 10/09/2026 10/09/2021, 05/12/2017, [...] Not on filedocumented as of this encounter Visit Diagnoses Diagnosis Scalp psoriasis Other psoriasis Plaque psoriasis Other psoriasis Psoriasis of nail Other psoriasis documented in this encounter Care Teams Underwriting Specialist Relationship Specialty Start Date End Date Ana Luisa Singletary DO [address] [place] [address] [place] [address] PCP - General Internal Medicine 06/23/16 documented as of this encounter
--- OUTSIDE RECORDS SUMMARY | 2024-11-27 20:21 | External Medical Summary ---
Author Name Unknown Address Unknown Organization K01:[facility] [place] [facility] [address] [place] [address] Laboratory Report Ordering Provider Test Date Status MICHELARAHEL 06/01/2024 11:15:57 Final Observation Date Value Abnormality Reference (Units) Status Hepatitis B virus surface Ab [Units/volume] in Serum or Plasma by Immunoassay 06/01/2024 11:15:57 <3.5 (mIU/mL) Final Hepatitis B virus surface Ab [Presence] in Serum by Immunoassay 06/01/2024 11:15:57 Negative Final HEPATITIS B SURFACE ANTIBODY, INTERPRETATION 06/01/2024 11:15:57 NOT immune to Hepatitis B Virus Final POSITIVE: >=11.5 mIU/mL
INDETERMINATE: 8.5-<11.5 mIU/mL
NEGATIVE: <8.5 mIU/mL Performing Location [facility] - [facility] [address] [place] [address]
--- OUTSIDE RECORDS SUMMARY | 2024-11-27 20:21 | External Medical Summary | Summary of Care ---
Author Name Unknown Organization [facility] Address [address] [place] [address] Phone [phone] Care Team Providers Care Poultice Machine Operator Name Role Phone Ana Luisa Singletary Primary Care Provider Encounter Details Date Type Department Care Team (Latest Contact Info) Description 06/01/2024 11:00 AM EDT - 06/01/2024 11:59 PM EDT Hospital Encounter Radiology Film File [address] [place] [address] Arrived Discharge Disposition: Home - Self Care Allergies No known active allergiesdocumented as of this encounter (statuses as of 06/02/2024) Medications Medication Sig Dispensed Refills Start Date [...] as of this encounter (statuses as of 06/02/2024) Active Problems Problem Noted Date Diagnosed Date [...] as of this encounter (statuses as of 06/02/2024) Resolved Problems Problem Noted Date Diagnosed Date [...] as of this encounter (statuses as of 06/02/2024) Immunizations Name Administration Dates Next Due PPD [...] on file documented as of this encounter Plan of Treatment Upcoming Encounters Date Type Department Care Team (Late st Contact Info) Description 11/01/2024 3:30 PM EST Imaging Radiology [address] [place] [id number] 12/07/2024 11:40 AM EST Office Visit Dermatology [address] [place] [address] Alison Encinas PA-C [address] [place] [address] [place] [address] 05/19/2025 2:10 PM EDT Office Visit Family Medicine [address] [place] [phone] Ana Luisa Singletary, [address] [place] [address] Scheduled Procedures Name Priority Associated Diagnoses Date/Ti me COLONOSCOPY FLEXIBLE PROXIMAL DIAGNOSTIC Recall History of colon polyps Health Maintenance Due Date Last Done Comments DISCUSS TOBACCO CESSATION (REFER TO SMARTSET #6642) 1970 COVID-19 Vaccine (#1) 1975 Hepatitis B [...] study not interpreted or resulted by a [employer] or [employer] contracted radiologist. Alison Encinas PA-C RADIOLOGY (RAD GENERAL) documented in this encounter Care Teams Poultice Machine Operator Relationship Specialty Start Date End Date Ana Luisa Singletary DO [address] [place] [address] [place] [address] PCP - General Internal Medicine 06/23/16 documented as of this encounter
--- OUTSIDE RECORDS SUMMARY | 2024-11-27 20:21 | External Medical Summary ---
Author Name Unknown Address Unknown Organization K01:[facility] [place] - [address] [place] [address] Laboratory Report Ordering Provider Test Date Status RAHEL ABERNATHY 06/01/2024 11:15:57 Final Observation Date Value Abnormality Reference (Units ) Status Treponema pallidum Ab [Presence] in Serum by Immunoassay 06/01/2024 11:15:57 Nonreactive Nonreactive Final No serologic evidence of syp hilis. No additional testing clinicially indicated at this time. Consider repeat testing in 2-4 weeks if acute or primary syphilis is suspected. Performing Location [facility] [place] - [address] [place] [address]
--- OUTSIDE RECORDS SUMMARY | 2024-11-27 20:21 | External Medical Summary | Summary of Care ---
Author Name Unknown Organization [facility] Address [address] [facility] [place] [address] Phone [phone] Care Team Providers Care Masonry Supervisor Name Role Phone Ana Luisa Singletary Primary Care Provider Reason for Visit * Reason Comments Follow Up 6 months for psorias is, no concerns Encounter Details Date Type Department Care Team (Late st Contact Info) Description 06/01/2024 11:00 AM EDT Office Visit Dermatology [address] [place] [address] Alison Encinas PA-C [address] [place] [address] [place] [address] Medication monitoring encounter* Allergies No known active [...] documented in this encounter Progress Notes * Javon Vital MD - 06/01/2024 3:43 PM EDT I have seen and examined the patient via teledermatology review of chart note and photos with Alison Encinas PA-C. I have reviewed and agree with the assessment and plan. * Alison Encinas PA-C - 06/01/2024 11:00 [...] NONE Reviewed, same day as visit, 0 [facility] Dermatology lab work(s)/pathology report(s) as well as [...] 2.5 mg Nebulizer Q4H PRN Ana Luisa Singletary, DO 2.5 mg at 06/02/17 1512 ALLERG IES: Patient has noknown allergies. OBJECT AMADOR: GEN: alert, no distress, appears oriented, pleasant and cooperative. SKIN: Detailed exam of hair, face including lids and lips, neck, chest, abdomen, back, bilateral upper ext. (arm, hand, fingers), bilateral lower ext. (leg, foot, toes), palpation of scalp, fingernail zambian present, toenail zambian present, inguinal areas, groin (mons pubis), buttocks and anus completed: 1. Scalp/generalized body/nails (nail zambian present)-No evidence of any psoriatic plaques or [...] skin exam/psoriasis f/u Sent pt results through [facility]. Applicable photos (if any) and chart reviewed [...] Alison Encinas PA-C 06/01/2024 11:01 AM Dermatology [address] [place] [address] documented in this encounter Nursing Notes * Pamela Walter LPN - 06/01/2024 10:53 AM EDT Patient identified by full name and date of . Chief Complaint Patient presents with Follow Up 6 months for psoriasis, no concerns documented in this encounter Plan of Treatment Upcoming Encounters Date Type Department Care Team (Late st Contact Info) Description 11/01/2024 3:30 PM EST Imaging Radiology [address] [place] [address] 12/07/2024 11:40 AM EST Office Visit Dermatology [address] [place] [address] Alison Encinas PA-C [address] [place] [address] [place] [address] 05/19/2025 2:10 PM EDT Office Visit Family Medicine [address] [place] [phone] Ana Luisa Singlet[address] [place] [address] Pending Results Name Type Priority Associated Diagnoses [...] Comments DISCUSS TOBACCO CESSATION (REFER TO SMARTSET #329) 1970 COVID-19 Vaccine (#1) 1975 Hepatitis B [...] interpreted or resulted by a [facility] or [employer] [facility] contracted radiologist. Alison Encinas PA-C RADIOLOGY (RAD GENERAL) documented in this encounter Visit Diagnoses Diagnosis Medication monitoring encounter- Primary Encounter for therapeutic drug monitoring documented in this encounter Care Teams Masonry Supervisor Relationship Specialty Start Date End Date Ana Luisa Singletary DO [address] [place] [address] [place] [phone] PCP - General Internal Medicine 06/23/16 documented as of this encounter
--- OUTSIDE RECORDS SUMMARY | 2024-11-27 20:21 | External Medical Summary | Summary of Care ---
Author Name Unknown Organization [facility] Address [address] [place] [address] Phone [phone] Care Team Providers Care Bottoming Room Supervisor Name Role Phone Ana Luisa Singletary Primary Care Provider Encounter Details Date Type Department Care Team (Late st Contact Info) Description 10/17/2024 Orders Only Outcomes Research Department [address] [place] [address] Karly Chavarria CHRA [employer] Other*[id number] Allergies No known active allergiesdocumented as of this encounter (statuses as of 10/17/2024) Medications ADVIL 200 MG PO CAPS 1-2 [...] WHEEZING 18 g 1 05/17/20 24 Active Humira (2 Pen) 40 MG/0.8ML Subcutaneous Pen-injector Kit (Adalimumab)Hilaria cations:Scalp psoriasis,Plaque psoriasis,Psoria sis of nail INJECT 40MG SUBCUTANEOUSLY EVERY OTHER WEEK 2 Each 6 05/18/20 24 Active Hospital, Clinic, or Other Facility Administered Medication Ordered Dose Route Frequency Start Date End Date Status albuterol sulfate (PROVENTIL) (2.5 MG/3ML) 0.083% inhalation solution 2.5 mgIndications:Tobacco use disorder 2.5 mg NEBULIZER Q4H PRN 06/02/2017 Active documented as of this encounter (statuses as of 10/17/2024) Active Problems Problem Noted Date Diagnosed Date [...] as of this encounter (statuses as of 10/17/2024) Resolved Problems Problem Noted Date Diagnosed Date [...] as of this encounter (statuses as of 10/17/2024) Immunizations Name Administration Dates Next Due PPD [...] Frequency of Alcohol Consumption 2-4 times a mon 10/11/2018 Average Number of Drinks 3 or 4 [...] AM EDT documented as of this encounter Plan of Treatment Upcoming Encounters Date Type Department Care Team (Late st Contact Info) Description 11/01/2024 3:30 PM EST Imaging Radiology [address] [place] [address] 12/07/2024 11:40 AM EST Office Visit Dermatology [address] [place] [address] Alison Encinas PA-C [address] [place] [address] [place] [address] 05/19/2025 2:10 PM EDT Office Visit Family Medicine [address] [phone] Ana Luisa Singletary DO [address] [place] [address] [place] [address] Scheduled Orders Name Type Priority Associated Diagnoses Orde r Schedule MYCODE SUBSEQUENT ADULT Lab Routine [employer] Other*[id number] Every 6 Months for 2 Occurrences starting 10/17/2024 until 11/06/2025 Scheduled Procedures Name Priority Associated Diagnoses Date/Ti me COLONOSCOPY FLEXIBLE PROXIMAL DIAGNOSTIC Recall History of colon polyps Health Maintenance Due Date Last Done Comments DISCUSS TOBACCO CESSATION (REFER TO SMARTSET #3290) 1970 COVID-19 Vaccine (#1) 1975 Hepatitis B [...] Ratio 10/13/2025 10/13/2022 Pap Smear 10/20/2025 10/20/2022, 0 04/2019, 09/15/2016, Additional history exists Lipid Panel [...] as of this encounter Visit Diagnoses Diagnosis [employer] Other*[id number] documented in this encounter Care Teams Bottoming Room Supervisor Relationship Specialty Start Date End Date Ana Luisa Singletary DO [address] [place] [address] [place] [id number] PCP - General Internal Medicine 06/23/16 documented as of this encounter
--- OUTSIDE RECORDS SUMMARY | 2024-11-27 20:21 | External Medical Summary | Summary of Care ---
Author Name Unknown Organization [facility] Address [address] [facility] [place] [address] Phone [phone] Care Team Providers Care Machine Shop Apprentice Name Role Phone Ana Luisa Singletary Primary Care Provider Reason for Visit * Reason Comments eRx-Medication Refill Encounter Details Date Type Department Care Team (Late st Contact Info) Description 11/15/2024 Refill [address] [place] [address] Michela Encinas PA-C [address] [place] [address] [place] [id number] Allergies No known active allergiesdocumented as of this encounter (statuses as of 11/15/2024) Medications ADVIL 200 MG PO CAPS 1-2 [...] FOR WHEEZING 18 g 1 024 Active Yusimry 40 MG/0.8ML Subcutaneous Solution Auto-injector (Adalimumab-aqv h) INJECT 40 MG UNDER THE SKIN (SUBCUTANEOUS INJECTION) EVERY OTHER WEEK - MAINTENANCE DOSE 1.6 mL 6 025 Active Yusimry 40 MG/0.8ML Subcutaneous Solution Auto-injector (Adalimumab-aqv h) INJECT 40MG SUBCUTANEOUSLY EVERY OTHER WEEK 2 Pen 6 025 2024 Discontinued Hospital, Clinic, or Other Facility Administered Medication Ordered Dose Route Frequency Start Date End Date Status albuterol sulfate (PROVENTIL) (2.5 MG/3ML) 0.083% inhalation solution 2.5 mgIndications:Tobacco use disorder 2.5 mg NEBULIZER Q4H PRN 06/02/2017 Active documented as of this encounter (statuses as of 11/15/2024) Active Problems Problem Noted Date Diagnosed Date [...] as of this encounter (statuses as of 11/15/2024) Resolved Problems Problem Noted Date Diagnosed Date [...] as of this encounter (statuses as of 11/15/2024) Immunizations Name Administration Dates Next Due PPD [...] Telephone Encounter - Michela Encinas PA-C - 11/15/2024 2:24 PM EST Signed Prescriptions: Disp Refills Yusimry 40 MG/0.8ML Subcutaneous Solution *1.6 mL 6 Sig: INJECT 40 MG UNDER THE SKIN (SUBCUTANEOUS INJECTION) EVERY OTHER WEEK - MAINTENANCE DOSEAuthorizing Provider: MICHELA ENCINAS * Telephone Encounter - Pamela Walter LPN - 11/15/2024 1:01 PM ESTPending Prescriptions: Disp Refills Yusimry 40 MG/0.8ML Subcutaneous Solution *1.6 mL 6 Sig: [id number] MG UNDER THE SKIN (SUBCUTANEOUS INJECTION) EVERY OTHER WEEK - MAINTENANCE DOSE documented in this encounter Plan of Treatment Upcoming Encounters Date Type Department Care Team (Late st Contact Info) Description 12/07/2024 11:40 AM EST Office Visit Dermatology [address] [place] [address] Michela Encinas PA-C [address] [place] [address] [place] [address] 05/19/2025 2:10 PM EDT Office Visit Family Medicine [address] [phone] Singletary Ana Luisa Stone[address] [place] [address] 11/03/2025 3:30 PM EST Imaging Radiology [address] [place] [address] Scheduled Procedures Name Priority Associated Diagnoses Date/Ti me COLONOSCOPY FLEXIBLE PROXIMAL DIAGNOSTIC Recall History of colon polyps Health Maintenance Due Date Last Done Comments DISCUSS TOBACCO CESSATION (REFER TO SMARTSET #7388) 1970 Hepatitis B Vaccine (1 of 3 [...] filedocumented as of this encounter Care Teams Machine Shop Apprentice Relationship Specialty Start Date End Date Ana Luisa Singletary DO [address] [place] [address] [place] [phone] PCP - General Internal Medicine 06/23/16 documented as of this encounter
--- OUTSIDE RECORDS SUMMARY | 2024-11-27 20:21 | External Medical Summary ---
Author Name Unknown Address Unknown Organization K01:[facility] - [facility] [address] [facility] [address] Laboratory Report Ordering Provider Test Date Status RANJIT ABERNATHYC 06/01/2024 11:15:57 Final Observation Date Value Abnormality Reference (Units ) Status HIV 1+2 Ab+HIV1 p24 Ag [Presence] in Serum or Plasma by Immunoassay 06/01/2024 11:15:57 Negative Negative Final Negative HIV-1/2 antigen and antibody screening tset results usually indicate the absence of HIV-1 and HIV-2 infection. However, such negative results do not rule-out acute HIV infection. If acute HIV-1 infection is highly suspected, it is recommended that a specimen be submitted for detection of HIV-1 RNA. Performing Location [facility] - [address] [facility] [address]
--- OUTSIDE RECORDS SUMMARY | 2024-11-27 20:21 | External Medical Summary | Summary of Care ---
Author Name Unknown Organization [facility] Address [address] [facility] [place] [address] Phone [phone] Care Team Providers Care Maintenance Foreman Name Role Phone Ana Luisa Singletary Primary Care Provider Reason for Visit * Reason Comments Outpatient Testing Encounter Details Date Type Department Care Team (Late st Contact Info) Description 06/01/2024 11:20 AM EDT Laboratory Laboratory [address] [place] [phone] [place] [address] Medication monitoring encounter Allergies No known active allergiesdocumented as of [...] Description 11/01/2024 3:30 PM EST Imaging Radiology [address] [place] [address] 12/07/2024 11:40 AM EST Office Visit Dermatology [address] [place] [address] Alison Encinas PA-C [address] [place] [address] [place] [address] 05/19/2025 2:10 PM EDT Office Visit Family Medicine [address] [place] [phone] Ana Luisa Singletary DO [address] [place] [address] [place] [address] Pending Results Name Type Priority Associated Diagnoses [...] 06/01/2024 11:15 AM EDT SYPHILIS ANTIBODY SCREEN Lab Routine Medication monitoring encounter 06/01/2024 11:15 AM EDT Scheduled Procedures Name Priority Associated Diagnoses Date/Ti me COLONOSCOPY FLEXIBLE PROXIMAL DIAGNOSTIC Recall History of colon polyps Health Maintenance Due Date Last Done Comments DISCUSS TOBACCO CESSATION (REFER TO SMARTSET #3299) 1970 COVID-19 Vaccine (#1) 1975 Hepatitis B [...] as of this encounter Visit Diagnoses Diagnosis Medication monitoring encounter Encounter for therapeutic drug monitoring documented in this encounter Care Teams Maintenance Foreman Relationship Specialty Start Date End Date Ana Luisa Singletary DO [address] [place] [address] [place] [address] PCP - General Internal Medicine 06/23/16 documented as of this encounter
--- OUTSIDE RECORDS SUMMARY | 2024-11-27 20:21 | External Medical Summary | Summary of Care ---
Author Name Unknown Organization [facility] Address [address] [facility] [place] [address] Phone [phone] Care Team Providers Care Hunting And Fishing Guide Name Role Phone Ana Luisa Singletary Primary Care Provider [phone] Reason for Visit * Reason Onset Date Comments Med Request 10/26/2024 Encounter Details Date Type Department Care Team (Late st Contact Info) Description 10/26/2024 Telephone Dermatology [address] [place] [address] Alison Encinas PA-C [address] [place] [address] [place] [address] Med Request Allergies No known active allergiesdocumented as of [...] WHEEZING 18 g 1 05/17/20 24 Active Adalimumab 40 MG/0.8ML Subcutaneous Auto-injector Kit (Humira) INJECT 40MG SUBCUTANEOUSLY EVERY OTHER WEEK 2 Each 6 10/26/19 25 Active Humira (2 Pen) 40 MG/0.8ML Subcutaneous Pen-injector Kit (Adalimumab)Hilaria cations:Scalp psoriasis,Plaque psoriasis,Psoria sis of nail INJECT 40MG SUBCUTANEOUSLY EVERY OTHER WEEK 2 Each 6 05/18/20 24 025 Discontin ued(Medic ation/Dos e Changed) Hospital, Clinic, or Other Facility Administered Medication [...] 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 They stated that the Humira is not covered and they will need a new prescription for Adalimumab sent to [facility] pharmacy. Please send prescription to pharmacy if appropirate. Thank you, Yeny Bonilla Rn Examiner [facility] 10/26/2024,11:26 AM documented in this encounter Plan of Treatment Upcoming Encounters Date Type Department Care Team (Late st Contact Info) Description 11/01/2024 3:30 PM EST Imaging Radiology [address] [place] [address] 12/07/2024 11:40 AM EST Office Visit Dermatology [address] [place] [address] Alison Encinas PA-C [address] [place] [address] [place] [address] 05/19/2025 2:10 PM EDT Office Visit Family Medicine [address] [place] [phone] Ana Luisa Singletary DO [address] [place] [address] [place] [address] Scheduled Procedures Name Priority Associated Diagnoses Date/Ti me COLONOSCOPY FLEXIBLE PROXIMAL DIAGNOSTIC Recall History of colon polyps Health Maintenance Due Date Last Done Comments DISCUSS TOBACCO CESSATION (REFER TO SMARTSET #6221) 1970 COVID-19 Vaccine (#1) 1975 Hepatitis B [...] filedocumented as of this encounter Care Teams Hunting And Fishing Guide Relationship Specialty Start Date End Date Ana Luisa Singletary DO [address] [place] [address] [place] [phone] PCP - General Internal Medicine 06/23/16 documented as of this encounter
[2024-11-27 20:36] VITALS: TEMP 98.5
--- NOTE | 2024-11-27 20:40 | Emergency Department Note ---
History of Present Illness General Chief complaint: Cardiac Assessment Stated complaint: PALPITATIONS, JAW PAIN Time Seen by Provider: 11/27/24 20:28 History of Present Illness This is a 54-year-old female that presents to the emergency department via EMS with complaints of "palpitations, elevated heart rate". The patient states that this evening around 7:30 PM she sat down and while watching TV with her began to feel like she was going to pass out and noted that her watch alarmed that her heart rate was elevated. She shows me that the watch recorded heart rates between 65 and 182 bpm. This lasted about 20 minutes. No chest pain but did feel like she was going to pass out during this period of time and had some shortness of breath. She denies any nausea but did have some bilateral jaw pain with this 20-minute episode. She has never felt like this before. She notes the palpitations were quite profound. She notes her brother at 52 from an AK and her father at 64 from an AK. Patient did receive 4 aspirin and route. She denies any other pertinent past medical history, surgeries or allergies Home Medications Medication Instructions Recorded Confirmed Type albuterol sulfate 90 mcg/actuation 2 puff inhalation Q4 PRN Wheezing 11/27/24 11/27/24 History aerosol inhaler hydrochlorothiazide 12.5 mg capsule 12.5 mg PO QAM 11/27/24 11/27/24 History ibuprofen 600 mg tablet 600 mg PO TID PRN Pain (Scale 11/27/24 11/27/24 History Score 1-3) umeclidinium 62.5 mcg-vilanterol 1 inh inhalation QAM 11/27/24 11/27/24 History 25 mcg/actuation powdr for inhalation (Anoro Ellipta) Allergies Allergy/AdvReac Type Severity Reaction Status Date / Time No Known Allergies Allergy Unverified 08/24/17 09:43 Past Med/Surg History Problem List (Updated 11/28/24 @ 01:17 by Tahir Ware PA-C) Hypokalemia (Acute) Family history of AK (myocardial infarction) (Acute) Jaw pain (Acute) Tachycardia (Acute) Palpitations (Acute) HTN (hypertension) (Chronic) Social History Smoking Status: Current every day smoker Tobacco Type: Cigarettes Cigarettes Per Day: 1/2 pack per day; Hx Alcohol Use: Yes Hx Substance Use: No Preferred Language: Armenian Communication Ability: Effective Drawing Hand Required: No Beliefs That Will Affect Care: None Current Living Situation: Spouse Feels Safe at Home: Yes Safety Concerns: Feels Safe At This Time Assistive Devices: Glasses Review of Systems A total of 10 systems reviewed and were otherwise negative Physical Exam Vital Signs Vital Signs - 24 hr 11/27/24 20:20 11/27/24 20:20 11/27/24 20:26 Temperature 36.9 C Temperature Source Oral Pulse Rate 100 H 97 H Pulse Rate [Apical] Pulse Rate from SpO2 Sensor Respiratory Rate 16 Respiratory Effort / Characteristics Non-Labored Spontaneous Respiratory Depth Normal Respiratory Pattern Regular Blood Pressure 145/102 H Blood Pressure [Right Arm] Blood Pressure Mean 116 Blood Pressure Mean [Right Arm] Pulse Oximetry 95 95 Oxygen Delivery Method Room Air Room Air Oxygen Flow Rate 0 Sepsis Recent Fever Within 48 Hours No Sepsis New/Unexplained Change in Mental Status N/A Sepsis Action Taken by Nursing No Action Required 11/27/24 20:45 11/27/24 21:30 11/27/24 22:00 Temperature Temperature Source Pulse Rate 95 H 89 85 Pulse Rate [Apical] Pulse Rate from SpO2 Sensor 94 H Respiratory Rate 23 20 20 Respiratory Effort / Characteristics Respiratory Depth Respiratory Pattern Blood Pressure 143/97 H 130/80 Blood Pressure [Right Arm] Blood Pressure Mean 125 96 Blood Pressure Mean [Right Arm] Pulse Oximetry 95 95 95 Oxygen Delivery Method Room Air Room Air Oxygen Flow Rate Sepsis Recent Fever Within 48 Hours Sepsis New/Unexplained Change in Mental Status Sepsis Action Taken by Nursing 11/27/24 23:52 11/28/24 00:25 11/28/24 00:45 Temperature Temperature Source Pulse Rate 84 Pulse Rate [Apical] 103 H 86 Pulse Rate from SpO2 Sensor Respiratory Rate 16 20 Respiratory Effort / Characteristics Respiratory Depth Respiratory Pattern Blood Pressure Blood Pressure [Right Arm] 147/92 H 138/93 Blood Pressure Mean Blood Pressure Mean [Right Arm] 110 108 Pulse Oximetry 93 97 Oxygen Delivery Method Room Air Room Air Oxygen Flow Rate Sepsis Recent Fever Within 48 Hours Sepsis New/Unexplained Change in Mental Status Sepsis Action Taken by Nursing 11/28/24 01:00 Temperature Temperature Source Pulse Rate Pulse Rate [Apical] 82 Pulse Rate from SpO2 Sensor Respiratory Rate 16 Respiratory Effort / Characteristics Respiratory Depth Respiratory Pattern Blood Pressure Blood Pressure [Right Arm] 130/94 Blood Pressure Mean Blood Pressure Mean [Right Arm] 106 Pulse Oximetry 93 Oxygen Delivery Method Room Air Oxygen Flow Rate Sepsis Recent Fever Within 48 Hours Sepsis New/Unexplained Change in Mental Status Sepsis Action Taken by Nursing VITAL SIGNS - Vital signs and nursing notes were reviewed. Stable and afebrile. GENERAL -54-year-old female appearing her stated age who is in no acute distress. Communicates well with provider and answers questions appropriately. SKIN - Without rashes. No meningeal or petechial rash. HEAD - NC/AT. EYES - PERRL with EOMI bilaterally. Sclera anicteric. EARS - No deformities of external structures noted on gross examination bilaterally. NOSE - Midline and without cyanosis. No epistaxis or purulent drainage noted. MOUTH/OROPHARYNX - Without perioral cyanosis. NECK - Neck with FROM. No nuchal rigidity. LUNGS - Chest wall symmetric without accessory muscle use, intercostals retractions, or central cyanosis. Normal vesicular breath sounds CTA B/L. No wheezes, rales, or rhonchi appreciated. CARDIAC - RRR EXTREMITIES - No clubbing or peripheral cyanosis. +5/5 strength noted in UE/LE bilaterally. NEUROLOGIC - Cranial nerves II through XII grossly intact. PSYCH -alert, oriented and pleasant on exam. Course Administered Medications Potassium Chloride/Sodium Chloride (Normal Saline W/20 Meq Kcl) 20 meq in 1,000 mls @ 75 mls/hr IV .[id number] ONE Stop: 11/28/24 12:24 Last Admin: 11/28/24 00:01 Dose: 75 mls/hr Documented By: NADIRA Discontinued Medications Magnesium Sulfate/Dextrose (Magnesium Sulfate / D5w) 1 gm in 100 mls @ 50 mls/hr IV ONE ONE Stop: 11/28/24 00:29 Last Admin: 11/28/24 00:01 Dose: 50 mls/hr Documented By: NADIRA Ioversol (Optiray 320 125ml) 125 ml IV ONCE ONE Stop: 11/27/24 23:52 Last Admin: 11/27/24 23:51 Dose: 118 ml Documented By: DEEP Potassium Chloride (Potassium Chloride Crtab 20 Meq Tabcr) 20 meq PO NOW STA Stop: 11/27/24 21:27 Last Admin: 11/27/24 21:50 Dose: 20 meq Documented By: PER Potassium Chloride (Potassium Chloride Crtab 20 Meq Tabcr) 40 meq PO NOW STA Stop: 11/27/24 22:30 Last Admin: 11/28/24 00:01 Dose: 40 meq Documented By: AN Medical Decision Making Laboratory Data 11/27/24 20:23 11/27/24 20:23 Lab Results 11/27/24 11/27/24 Range/Units 20: 21:54 WBC 8.18 (4.8-10.8) K/ul RBC 4.58 (4.20-5.40) M/uL Hgb 14.3 (12.0-16.0) g/dl Hct 39.4 (37.0-47.0) % MCV 86.0 (80.0-100.0) fL MCH 31.2 (25.0-34.0) pg MCHC 36.3 H (32.0-36.0) g/dL RDW Std Deviation 37.9 (36.4-46.3) fL RDW Coeff of Guille 12.2 (11.5-14.5) % Plt Count 241 (130-400) K/uL MPV 10.8 (9.4-12.4) fL Immature Gran % (Auto) 0.4 % Neut % (Auto) 36.1 % Lymph % (Auto) 51.5 % [place] % (Auto) 8.2 % Eos % (Auto) 3.3 % Baso % (Auto) 0.5 % Neut # (Auto) 2.96 (1.40-6.50) K/uL Lymph # (Auto) 4.21 H (1.20-3.40) K/uL [place] # (Auto) 0.67 H (0.11-0.59) K/uL Eos # (Auto) 0.27 (0.00-0.50) K/uL Baso # (Auto) 0.04 (0.00-0.20) K/uL Immature Gran # (Auto) 0.03 (0.01-0.20) K/uL PT 10.2 (9.0-12.0) Seconds INR 0.9 (0.9-1.1) APTT 25 (21-31) Seconds PTT Ratio 0.9 D-Dimer 280 (0-500) ug/L FEU Sodium 139 (136-145) mmol/L Potassium 3.0 L (3.5-5.1) mmol/L Chloride 103 (98-107) mmol/L Carbon Dioxide 28 (21-32) mmol/L Anion Gap 8 (3-11) BUN 11 (6-23) mg/dl Creatinine 0.89 (0.6-1.2) mg/dl Est Cr Clr Drug Dosing 68.6 ml/min eGFR 77.00 BUN/Creatinine Ratio 12.4 (10-20) Glucose 132 H (70-99(Fasting)) mg/dl Calcium 9.6 (8.6-10.3) mg/dl Magnesium 1.8 (1.7-2.4) mg/dl Total Bilirubin 0.6 (0.2-1.0) mg/dl AST 19 (13-39) U/L ALT 19 (7-52) U/L Alkaline Phosphatase 66 (34-104) U/L Troponin I High Sens 3.7 3.5 (0-14) pg/ml Total Protein 6.9 (6.0-8.3) gm/dl Albumin 4.1 (3.4-5.0) gm/dl Globulin 2.8 (2.5-4.0) gm/dl Albumin/Globulin Ratio 1.5 (0.9-2) TSH 2.182 (0.300-4.500) uIu/ml Imaging Data Radiologist's Impression: Chest X-Ray 11/27/24 20:24 Exam(s): XR CXR 1 VIEW EXAM: XR Chest, 1 View CLINICAL HISTORY: Reason for exam: Dysrhythmia. TECHNIQUE: Frontal view of the chest. COMPARISON: No relevant prior studies available. FINDINGS: Lungs: Unremarkable. No consolidation. Pleural space: Unremarkable. No pneumothorax. Heart: Unremarkable. No cardiomegaly. Mediastinum: Unremarkable. Normal mediastinal contour. Bones/joints: Unremarkable. No acute fracture. IMPRESSION: Normal chest x-ray. Electronically signed by: Humphrey Young MD 11/27/24 21:30 PM Chest CTA 11/27/24 23:03 Exam(s): CTA CHEST IV Amt: 118 ml optiray 320 EXAM: CT Angiography Chest With Intravenous Contrast CLINICAL HISTORY: Reason for exam: sob. TECHNIQUE: Axial computed tomographic angiography images of the chest with intravenous contrast. CTDI is 18.7 mGy and DLP is 564 mGy-cm. Automated exposure control was utilized for the study. A dose lowering technique was utilized adhering to the principles of ALARA. MIP reconstructed images were created and reviewed. COMPARISON: Chest x-ray from November 27, 2024 FINDINGS: Pulmonary arteries: The pulmonary arterial tree is well opacified with contrast. No pulmonary embolism is identified. Aorta: Slight ectasia of the ascending aortic arch measuring 4 cm in diameter. No dissection. The descending thoracic aorta is nondilated. Lungs: Mild emphysematous changes in the lungs, greatest in the upper lobes. There is slight bronchial wall thickening consistent with bronchitis in a small amount of segmental bronchial plugging in the right lower lobe. No focal consolidation is seen. Pleural space: Unremarkable. No significant effusion. No pneumothorax. Heart: Unremarkable. No cardiomegaly. No significant pericardial effusion. No evidence of RV dysfunction. Mediastinum: There is a 5.2 cm hiatal hernia. Bones/joints: Mild degenerative changes throughout the spine. No acute fracture or subluxation is seen. Soft tissues: Unremarkable. Lymph nodes: Unremarkable. No enlarged lymph nodes. IMPRESSION: 1. Slight ectasia of the ascending aortic arch measuring 4 cm in diameter. No dissection. The descending thoracic aorta is nondilated. 2. Mild emphysematous changes in the lungs, greatest in the upper lobes. There is slight bronchial wall thickening consistent with bronchitis in a small amount of segmental bronchial plugging in the right lower lobe. No focal consolidation is seen. 3. There is a 5.2 cm hiatal hernia. 4. The pulmonary arterial tree is well opacified with contrast. No pulmonary embolism is identified. Electronically signed by: Tonio Cronin MD 11/28/24 01:09 AM MDM Narrative Patient was seen and evaluated as above in room B09. Review was performed of nursing notes and vital signs. Patient presents for evaluation of a 20 min episode of palpitations and elevated heart rate up to 182 bpm per smart watch. She felt like she was going to pass out during this time and had radiation of symptoms into the jaw. No chest pain. Did have nausea. No history of similar. Strong family history of AK at an early age. She is asymptomatic at this time. No history of A-fib, SVT or other arrhythmia. Options of care were discussed with the patient. IV access was already established. She did have aspirin prehospital. EKG was performed and per my interpretation reveals normal sinus rhythm at a rate of 94 bpm. QTc 427. QRS 62. No ST elevation on this rhythm tracing. Chest x-ray per my interpretation without acute process. Formal radiology report is as above noting normal chest x-ray. Labs reveal no leukocytosis or concerning anemia. Coags normal. Normal D-dimer. Hypokalemia 3.0 and oral repletion ordered. No evidence of kidney or liver failure. Glucose mildly elevated at 132. Troponin x 2 negative. TSH was euthyroid state. Noting the patient's strong family history and symptoms today, do believe that further evaluation and management in the inpatient setting is warranted. Case discussed with the hospitalist service. Please refer to further documentation regarding her stay. In the evaluation and treatment of this patient the following differential diagnoses were entertained: AK, PE, arrhythmia, electrolyte disturbance, dissection, among others. Impression & Plan Palpitations, Tachycardia, Jaw pain, Family history of AK (myocardial infarction), Hypokalemia Discharge Plan Visit Data Chief Complaint: Cardiac Assessment Stated Complaint: PALPITATIONS, JAW PAIN ED Provider: Stephane Cobos ED Midlevel Provider: Tahir Ware Discharge Problem: Palpitations, Tachycardia, Jaw pain, Family history of AK (myocardial infarction), Hypokalemia Patient Disposition: Admitted As Inpatient Condition: Good Forms Stand Alone Forms: My [facility] Prescriptions Prescriptions: No Action hydrochlorothiazide 12.5 mg capsule 12.5 mg PO QAM ibuprofen 600 mg tablet 600 mg PO TID PRN (Reason: Pain (Scale Score 1-3)) albuterol sulfate 90 mcg/actuation HFA aerosol inhaler 2 puff INHALATION Q4 PRN (Reason: Wheezing) Anoro Ellipta 62.5-25 mcg/actuation blister with device 1 inh INHALATION QAM Referrals Referrals: Darrel Rossi MD [Outside Practitioners] -
[2024-11-27 21:02] LABS: Albumin Globulin Ratio 1.5 (0.9-2); Albumin Level 4.1 gm/dl (3.4-5.0); BUN Creatinine Ratio 12.4 (10-20); Bilirubin,Total 0.6 mg/dl (0.2-1.0); Calcium 9.6 mg/dl (8.6-10.3); Creatinine Clr Calc Pharmacy 68.6 ml/min; Globulin 2.8 gm/dl (2.5-4.0); Magnesium 1.8 mg/dl (1.7-2.4); Total Protein 6.9 gm/dl (6.0-8.3)
[2024-11-27 21:09] LABS: Troponin I High Sensitivity 3.7 pg/ml (0-14)
[2024-11-27 21:10] LABS: Hematocrit (blood only) 39.4 % (37.0-47.0); Hemoglobin 14.3 g/dl (12.0-16.0); Mean Corpuscular Hemoglobin 31.2 pg (25.0-34.0); Mean Corpuscular Hgb Conc 36.3 g/dL (32.0-36.0); Mean Platelet Volume 10.8 fL (9.4-12.4); Platelet Count 241 K/uL (130-400); RDW Coefficient of Variation 12.2 % (11.5-14.5); RDW Standard Deviation 37.9 fL (36.4-46.3); Red Blood Count 4.58 M/uL (4.20-5.40); White Blood Count 8.18 K/ul (4.8-10.8)
[2024-11-27 21:18] LABS: Thyroid Stimulating Hormone 2.182 uIu/ml (0.300-4.500)
[2024-11-27 21:23] LABS: D Dimer 280 ug/L FEU (0-500); INR 0.9 (0.9-1.1); Partial Thromboplastin Ratio 0.9; Partial Thromboplastin Time 25 Seconds (21-31); Prothrombin Time 10.2 Seconds (9.0-12.0)
--- NOTE | 2024-11-27 21:31 | XRay Report ---
Exam(s): XR CXR 1 VIEW EXAM: XR Chest, 1 View CLINICAL HISTORY: Reason for exam: Dysrhythmia. TECHNIQUE: Frontal view of the chest. COMPARISON: No relevant prior studies available. FINDINGS: Lungs: Unremarkable. No consolidation. Pleural space: Unremarkable. No pneumothorax. Heart: Unremarkable. No cardiomegaly. Mediastinum: Unremarkable. Normal mediastinal contour. Bones/joints: Unremarkable. No acute fracture. IMPRESSION: Normal chest x-ray. Electronically signed by: Humphrey Young MD 11/27/24 21:30 PM
[2024-11-27] MEDS: POTASSIUM CHLORIDE CRTAB 20 MEQ TABCR PO STA (21:50)
[2024-11-27 22:43] LABS: Basophils # (auto) 0.04 K/uL (0.00-0.20); Basophils % (auto) 0.5 %; Eosinophils # (auto) 0.27 K/uL (0.00-0.50); Eosinophils % (auto) 3.3 %; Immature Granulocytes # (auto) 0.03 K/uL (0.01-0.20); Immature Granulocytes % (auto) 0.4 %; Lymphocytes # (auto) 4.21 K/uL (1.20-3.40); Lymphocytes % (auto) 51.5 %; Monocytes # (auto) 0.67 K/uL (0.11-0.59); Monocytes % (auto) 8.2 %; Neutrophils # (auto) 2.96 K/uL (1.40-6.50); Neutrophils % (auto) 36.1 %
[2024-11-27] MEDS: OPTIRAY 320 125ml IV ONE (23:51)
[2024-11-28] MEDS: NSS + 20MEQ KCL 20 MEQ/1,000 ML BAG IV ONE (00:01)
[2024-11-28] MEDS: MAGNESIUM SULFATE / D5W 1 GM/100 ML BAG IV ONE (00:01)
[2024-11-28] MEDS: POTASSIUM CHLORIDE CRTAB 20 MEQ TABCR PO STA (00:01)
--- NOTE | 2024-11-28 01:10 | CT Scan Report ---
Exam(s): CTA CHEST IV Amt: 118 ml optiray 320 EXAM: CT Angiography Chest With Intravenous Contrast CLINICAL HISTORY: Reason for exam: sob. TECHNIQUE: Axial computed tomographic angiography images of the chest with intravenous contrast. CTDI is 18.7 mGy and DLP is 564 mGy-cm. Automated exposure control was utilized for the study. A dose lowering technique was utilized adhering to the principles of ALARA. MIP reconstructed images were created and reviewed. COMPARISON: Chest x-ray from November 27, 2024 FINDINGS: Pulmonary arteries: The pulmonary arterial tree is well opacified with contrast. No pulmonary embolism is identified. Aorta: Slight ectasia of the ascending aortic arch measuring 4 cm in diameter. No dissection. The descending thoracic aorta is nondilated. Lungs: Mild emphysematous changes in the lungs, greatest in the upper lobes. There is slight bronchial wall thickening consistent with bronchitis in a small amount of segmental bronchial plugging in the right lower lobe. No focal consolidation is seen. Pleural space: Unremarkable. No significant effusion. No pneumothorax. Heart: Unremarkable. No cardiomegaly. No significant pericardial effusion. No evidence of RV dysfunction. Mediastinum: There is a 5.2 cm hiatal hernia. Bones/joints: Mild degenerative changes throughout the spine. No acute fracture or subluxation is seen. Soft tissues: Unremarkable. Lymph nodes: Unremarkable. No enlarged lymph nodes. IMPRESSION: 1. Slight ectasia of the ascending aortic arch measuring 4 cm in diameter. No dissection. The descending thoracic aorta is nondilated. 2. Mild emphysematous changes in the lungs, greatest in the upper lobes. There is slight bronchial wall thickening consistent with bronchitis in a small amount of segmental bronchial plugging in the right lower lobe. No focal consolidation is seen. 3. There is a 5.2 cm hiatal hernia. 4. The pulmonary arterial tree is well opacified with contrast. No pulmonary embolism is identified. Electronically signed by: Tonio Cronin MD 11/28/24 01:09 AM
--- NOTE | 2024-11-28 03:44 | History & Physical Report ---
Date of Service November 28, 2024 Assessment & Plan (1) Palpitations: Plan: Palpitations Rule out tachyarrhythmia Hypokalemia secondary diuretic Rx hypertension, stable COPD, baseline cough symptoms NAFLD Hyperglycemia ro DM ongoing tobacco abuse OBS Admit to PCU Replace electrolytes Hold home diuretic for now TTE, cardiology consult re: palpitations Check hemoglobin A1c Nicotine patch as needed DVT prophylaxis per Lovenox subcu Full code Text document was generated using [employer] voice recognition software. It may contain grammatical or spelling errors. Kindly contact undersigned for clarification of any documentation item in question. History of Present Illness Chief Complaint: Palpitations Primary Care Provider: Ana Luisa Singletary DO History obtained from patient and records. Medical history significant for hypertension, COPD, NAFLD, IBS, ongoing tobacco abuse. Patient was watching television last night when she experienced palpitations. No actual chest pain or SOB. No unusual cough symptoms. No unusual stress at home. Highest heart rate of 180s documented on her watch. Transient jaw discomfort as per patient. Patient remembers similar symptoms about 5 years ago which led to an outpatient stress test which turned out to be negative. Patient currently comfortable at the emergency room. 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, occasional EtOH intake, factory work Allergies Allergy/AdvReac Type Severity Reaction Status Date / Time No Known Allergies Allergy Unverified 08/24/17 09:43 Home Medications Medication Instructions Recorded Confirmed Type albuterol sulfate 90 mcg/actuation 2 puff inhalation Q4 PRN Wheezing 11/27/24 11/27/24 History aerosol inhaler hydrochlorothiazide 12.5 mg capsule 12.5 mg PO QAM 11/27/24 11/27/24 History ibuprofen 600 mg tablet 600 mg PO TID PRN Pain (Scale 11/27/24 11/27/24 History Score 1-3) umeclidinium 62.5 mcg-vilanterol 1 inh inhalation QAM 11/27/24 11/27/24 History 25 mcg/actuation powdr for inhalation (Anoro Ellipta) Past Med/Surg History Problem List Hypokalemia (Acute) Family history of [place] (myocardial infarction) (Acute) Jaw pain (Acute) Tachycardia (Acute) Palpitations (Acute) HTN (hypertension) (Chronic) Social History Smoking Status: Current every day smoker Tobacco Type: Cigarettes Cigarettes Per Day: 1/2 pack per day; Hx Alcohol Use: Yes Hx Substance Use: No Preferred Language: Slovak Communication Ability: Effective Political Geographer Required: No Beliefs That Will Affect Care: None Current Living Situation: Spouse Feels Safe at Home: Yes Safety Concerns: Feels Safe At This Time Assistive Devices: Glasses Review of Systems Review of Systems: As per HPI, all other systems reviewed and negative Physical Exam Physical Exam: GENERAL: Comfortable, pleasant, obese, slightly hard of hearing, no respiratory distress SKIN: Normal color, warm HEENT: [place] palpebral conjunctivae, no ptosis, dry buccal mucosa NECK : Supple, no tenderness CHEST : Decreased breath sounds, no tenderness HEART : RRR, no obvious murmurs ABDOMEN: Some distention, nontender EXTREMITIES : No LE swelling/tenderness, palpable pulses, no other conspicuous deformities noted NEUROLOGIC : Coherent, no facial asymmetry, slightly hard of hearing, no other gross focality Results & Data Results & Data Vital Signs (Past 12 Hours) Vital Signs Temp Pulse Pulse Resp BP BP Pulse Ox 11/28/24 03:00 72 16 96/66 L 94 11/28/24 01:00 82 16 130/94 93 11/28/24 00:45 86 20 138/93 97 11/28/24 00:25 84 11/27/24 23:52 103 H 16 147/92 H 93 11/27/24 22:00 85 20 130/80 95 11/27/24 21:30 89 20 143/97 H 95 11/27/24 20:45 95 H 23 95 11/27/24 20:26 97 H 11/27/24 20:20 95 11/27/24 20:20 36.9 C 100 H 16 145/102 H 95 O2 Del Method O2 Flow Rate 11/28/24 03:00 Room Air 11/28/24 01:00 Room Air 11/28/24 00:45 Room Air 11/28/24 00:25 11/27/24 23:52 Room Air 11/27/24 22:00 11/27/24 21:30 Room Air 11/27/24 20:45 Room Air 11/27/24 20:26 11/27/24 20:20 Room Air 0 11/27/24 20:20 Room Air Laboratory Results Laboratory Results WBC 8.18 K/ul (4.8-10.8) 11/27/24 20: RBC 4.58 M/uL (4.20-5.40) 11/27/24 20:23 Hgb 14.3 g/dl (12.0-16.0) 11/27/24 20: Hct 39.4 % (37.0-47.0) 11/27/24 20: MCV 86.0 fL (80.0-100.0) 11/27/24 20: MCH 31.2 pg (25.0-34.0) 11/27/24 20: MCHC 36.3 g/dL (32.0-36.0) H 11/27/24 20: RDW Std Deviation 37.9 fL (36.4-46.3) 11/27/24: RDW Coeff of Guille 12.2 % (11.5-14.5) 11/27/24: Plt Count 241 K/uL (130-400) 11/27/24 20: MPV 10.8 fL (9.4-12.4) 11/27/24: Immature Gran % (Auto) 0.4 % 11/27/24: Neut % (Auto) 36.1 % 11/27/24: Lymph % (Auto) 51.5 % 11/27/24: Gaines % (Auto) 8.2 % 11/27/24: Eos % (Auto) 3.3 % 11/27/24 20: Baso % (Auto) 0.5 % 11/27/24: Neut # (Auto) 2.96 K/uL (1.40-6.50) 11/27/24 20: Lymph # (Auto) 4.21 K/uL (1.20-3.40) H 11/27/24 20:23 Gaines # (Auto) 0.67 K/uL (0.11-0.59) H 11/27/24: Eos # (Auto) 0.27 K/uL (0.00-0.50) 11/27/24 20:23 Baso # (Auto) 0.04 K/uL (0.00-0.20) 11/27/24 20:23 Immature Gran # (Auto) 0.03 K/uL (0.01-0.20) 11/27/24 20:23 PT 10.2 Seconds (9.0-12.0) 11/27/24 20: INR 0.9 (0.9-1.1) 11/27/24 20: APTT 25 Seconds (21-31) 11/27/24 20:23 PTT Ratio 0.9 11/27/24 20:23 D-Dimer 280 ug/L FEU (0-500) 11/27/24 20: Sodium 139 mmol/L (136-145) 11/27/24 20: Potassium 3.0 mmol/L (3.5-5.1) L 11/27/24 20: Chloride 103 mmol/L (98-107) 11/27/24 20: Carbon Dioxide 28 mmol/L (21-32) 11/27/24 20: Anion Gap 8 (3-11) 11/27/24 20: BUN 11 mg/dl (6-23) 11/27/24 20: Creatinine 0.89 mg/dl (0.6-1.2) 11/27/24 20: Est Cr Clr Drug Dosing 68.6 ml/min 11/27/24 20:23 eGFR 77.00 11/27/24 20:23 BUN/Creatinine Ratio 12.4 (10-20) 11/27/24 20: Glucose 132 mg/dl (70-99(Fasting)) H 11/27/24 20: Calcium 9.6 mg/dl (8.6-10.3) 11/27/24 20: Magnesium 1.8 mg/dl (1.7-2.4) 11/27/24 20: Total Bilirubin 0.6 mg/dl (0.2-1.0) 11/27/24 20: AST 19 U/L (13-39) 11/27/24 20:23 ALT 19 U/L (7-52) 11/27/24 20: Alkaline Phosphatase 66 U/L (34-104) 11/27/24 20:23 Troponin I High Sens 3.5 pg/ml (0-14) 11/27/24 21:54 Total Protein 6.9 gm/dl (6.0-8.3) 11/27/24 20:23 Albumin 4.1 gm/dl (3.4-5.0) 11/27/24 20:23 Globulin 2.8 gm/dl (2.5-4.0) 11/27/24 20:23 Albumin/Globulin Ratio 1.5 (0.9-2) 11/27/24 20:23 TSH 2.182 uIu/ml (0.300-4.500) 11/27/24 20:23 Impressions Chest X-Ray 11/27/24 20:24 Exam(s): XR CXR 1 VIEW EXAM: XR Chest, 1 View CLINICAL HISTORY: Reason for exam: Dysrhythmia. TECHNIQUE: Frontal view of the chest. COMPARISON: No relevant prior studies available. FINDINGS: Lungs: Unremarkable. No consolidation. Pleural space: Unremarkable. No pneumothorax. Heart: Unremarkable. No cardiomegaly. Mediastinum: Unremarkable. Normal mediastinal contour. Bones/joints: Unremarkable. No acute fracture. IMPRESSION: Normal chest x-ray. Electronically signed by: Humphrey Young MD 11/27/24 21:30 PM Chest CTA 11/27/24 23:03 Exam(s): CTA CHEST IV Amt: 118 ml optiray 320 EXAM: CT Angiography Chest With Intravenous Contrast CLINICAL HISTORY: Reason for exam: sob. TECHNIQUE: Axial computed tomographic angiography images of the chest with intravenous contrast. CTDI is 18.7 mGy and DLP is 564 mGy-cm. Automated exposure control was utilized for the study. A dose lowering technique was utilized adhering to the principles of ALARA. MIP reconstructed images were created and reviewed. COMPARISON: Chest x-ray from November 27, 2024 FINDINGS: Pulmonary arteries: The pulmonary arterial tree is well opacified with contrast. No pulmonary embolism is identified. Aorta: Slight ectasia of the ascending aortic arch measuring 4 cm in diameter. No dissection. The descending thoracic aorta is nondilated. Lungs: Mild emphysematous changes in the lungs, greatest in the upper lobes. There is slight bronchial wall thickening consistent with bronchitis in a small amount of segmental bronchial plugging in the right lower lobe. No focal consolidation is seen. Pleural space: Unremarkable. No significant effusion. No pneumothorax. Heart: Unremarkable. No cardiomegaly. No significant pericardial effusion. No evidence of RV dysfunction. Mediastinum: There is a 5.2 cm hiatal hernia. Bones/joints: Mild degenerative changes throughout the spine. No acute fracture or subluxation is seen. Soft tissues: Unremarkable. Lymph nodes: Unremarkable. No enlarged lymph nodes. IMPRESSION: 1. Slight ectasia of the ascending aortic arch measuring 4 cm in diameter. No dissection. The descending thoracic aorta is nondilated. 2. Mild emphysematous changes in the lungs, greatest in the upper lobes. There is slight bronchial wall thickening consistent with bronchitis in a small amount of segmental bronchial plugging in the right lower lobe. No focal consolidation is seen. 3. There is a 5.2 cm hiatal hernia. 4. The pulmonary arterial tree is well opacified with contrast. No pulmonary embolism is identified. Electronically signed by: Tonio Cronin MD 11/28/24 01:09 AM Diagnostic Findings EKG as per my interpretation :Rate 95, NSR, normal axis, T wave abnormalities septal leads
[2024-11-28] MEDS ORDERED: LORazepam 0.5 MG TAB PO PRN (03:45)
[2024-11-28] MEDS ORDERED: traMADol HCL 50 MG TABLET PO PRN (03:45)
[2024-11-28] MEDS ORDERED: ACETAMINOPHEN 325 MG TAB PO PRN ×2 (03:45→04:06)
[2024-11-28] MEDS ORDERED: PROMETHAZINE 6.25 MG/50.25 ML BAG IV PRN (03:45)
[2024-11-28] MEDS ORDERED: LEVALBUTEROL 1.25 MG/3 ML NEB NEB PRN (03:45)
[2024-11-28 04:22] LABS: Hematocrit (blood only) 38.8 % (37.0-47.0); Hemoglobin 13.8 g/dl (12.0-16.0); Mean Corpuscular Hgb Conc 35.6 g/dL (32.0-36.0); Mean Corpuscular Volume 87.2 fL (80.0-100.0); Mean Platelet Volume 10.6 fL (9.4-12.4); Platelet Count 227 K/uL (130-400); RDW Coefficient of Variation 12.3 % (11.5-14.5); RDW Standard Deviation 39.3 fL (36.4-46.3); Red Blood Count 4.45 M/uL (4.20-5.40); White Blood Count 9.42 K/ul (4.8-10.8)
[2024-11-28 04:42] LABS: BUN Creatinine Ratio 12.5 (10-20); Calcium 8.9 mg/dl (8.6-10.3); Creatinine Clr Calc Pharmacy 76.3 ml/min; Potassium 3.8 mmol/L (3.5-5.1)
[2024-11-28 05:05] LABS: Basophils # (auto) 0.05 K/uL (0.00-0.20); Basophils % (auto) 0.5 %; Eosinophils # (auto) 0.34 K/uL (0.00-0.50); Eosinophils % (auto) 3.6 %; Immature Granulocytes # (auto) 0.03 K/uL (0.01-0.20); Immature Granulocytes % (auto) 0.3 %; Lymphocytes # (auto) 5.03 K/uL (1.20-3.40); Lymphocytes % (auto) 53.4 %; Monocytes # (auto) 0.75 K/uL (0.11-0.59); Neutrophils # (auto) 3.22 K/uL (1.40-6.50); Neutrophils % (auto) 34.2 %
[2024-11-28 08:50] LABS: Estimated Average Glucose 120 mg/dl; Hemoglobin A1C 5.8 % (4.5-5.6)
[2024-11-28 08:55] VITALS: RESP 18
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
[2024-11-28] MEDS: ENOXAPARIN INJ 40 MG/0.4 ML SYR SQ SCH (09:46)
[2024-11-28] MEDS: UMECLIDINIUM/VILANTEROL 62.5/25MCG 7 PUFFS/INHALER INH SCH (09:46)
--- NOTE | 2024-11-28 14:12 | Discharge Summary ---
Date of Service November 28, 2024 Admission HPI Per Admitting Provider History obtained from patient and records. Medical history significant for hypertension, COPD, NAFLD, IBS, ongoing tobacco abuse. Patient was watching television last night when she experienced palpitations. No actual chest pain or SOB. No unusual cough symptoms. No unusual stress at home. Highest heart rate of 180s documented on her watch. Transient jaw discomfort as per patient. Patient remembers similar symptoms about 5 years ago which led to an outpatient stress test which turned out to be negative. Patient currently comfortable at the emergency room. 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, occasional EtOH intake, factory work Admission Exam Per Admitting Provider GENERAL: Comfortable, pleasant, obese, slightly hard of hearing, no respiratory distress SKIN: Normal color, warm HEENT: [place] palpebral conjunctivae, no ptosis, dry buccal mucosa NECK : Supple, no tenderness CHEST : Decreased breath sounds, no tenderness HEART : RRR, no obvious murmurs ABDOMEN: Some distention, nontender EXTREMITIES : No LE swelling/tenderness, palpable pulses, no other conspicuous deformities noted NEUROLOGIC : Coherent, no facial asymmetry, slightly hard of hearing, no other gross focality Principal Diagnosis Hypokalemia Palpitation Tachycardia Discharge Exam GENERAL: Comfortable, pleasant, obese, slightly hard of hearing, no respiratory distress SKIN: Normal color, warm HEENT: [place] palpebral conjunctivae, no ptosis, dry buccal mucosa NECK : Supple, no tenderness CHEST : CTA, no crackles, no rhonchi, no tenderness HEART : RRR, no obvious murmurs ABDOMEN: No distention, nontender EXTREMITIES : No LE swelling/tenderness, palpable pulses, no other conspicuous deformities noted NEUROLOGIC : Coherent, no facial asymmetry, slightly hard of hearing, no other gross focality Discharge Data Allergies Allergy/AdvReac Type Severity Reaction Status Date / Time No Known Allergies Allergy Unverified 08/24/17 09:43 Consultations 11/27/24 21:33 ED Decision to Admit Stat 11/28/24 04:06 Consult Cardiology Routine Ordered Studies 11/27/24 23:03 CT angio chest PE protocol Stat Hospital Course (1) Palpitations: per prior attending with addendum. Palpitations Rule out tachyarrhythmia Hypokalemia secondary diuretic Rx hypertension, stable COPD, baseline cough symptoms NAFLD Hyperglycemia ro DM ongoing tobacco abuse OBS Admit to PCU Replace electrolytes Hold home diuretic for now TTE, cardiology consult re: palpitations Check hemoglobin A1c Nicotine patch as needed DVT prophylaxis per Lovenox subcu Full code Addendum 11/24/2024: Patient was seen and examined at bedside. Patient underwent echo and stress test, no acute or concerning findings. Case discussed with cardiology, okay for discharge from cardiology point of view. Stress test is negative for inducible ischemia. Hypokalemia was noted, patient on hydrochlorothiazide, patient will be discharged on potassium supplement. CT of the chest was reviewed, there was some concern of bronchitis in the right lower lobe, no crackles or rhonchi on exam, patient without any increase in her underlying baseline cough or any change in the color of the sputum production. Patient denies fever. We discussed that we will manage it off of antibiotic, pt agreed, patient has been advised to closely follow-up on her increasing cough or sputum and be in contact with PCP to see if she needs antibiotic if her condition worsens. She is being discharged home with following instructions at the point of discharge: Follow-up with your primary care physician within a week time and likely you will need labs CBC/CMP/magnesium/phosphorus. Your evaluated by cardiology while in hospital, follow-up with cardiology in 2 to 4 weeks time upon discharge, you will likely need outpatient ambulatory EKG monitoring. Recommend that you stop smoking. You will need routine surveillance monitoring for the enlarged ascending aorta every 2 years. Follow-up with your cardiology upon discharge. New medications has been added this admission which are metoprolol and potassium tablet. Take your medications as prescribed. Please make sure that you are able to get your medications today by calling your pharmacy before you leave the hospital so that your treatment continuity is not broken. Text document was generated using Figure 1 voice recognition software. It may contain grammatical or spelling errors. Kindly contact undersigned for clarification of any documentation item in question. Home Health Attestation I certify that this patient is under my care and that I, or a physicians marketing communications assistant working with me, had a face to-face encounter that meets the home health [id number] encounter requirements with this patient. The encounter with the patient was in whole, or in part, for the following medical condition, which is the primary reason for home health care (list medical condition): I certify that, based on my findings, the following services are medically necessary home health services: My clinical findings support the need for the above services because: Further, I certify that my clinical findings support that this patient is homebound (i.e. absences from home require considerable and taxing effort and are for medical reasons or buddhism services or infrequently or of short duration when for other reasons) because: Certification for Home Health Services: Based on the above findings, I certify that this patient is confined to the home and needs intermittent shelter care, physical therapy and/or speech therapy or continues to need occupational therapy. The patient is under my care, and I have initiated the establishment of the plan of care. This patient will be followed by a physician who will periodically review the plan of care. Total Time Total Time Spent Total Time Spent (In Minutes): 45 Discharge Plan Discharge Items Patient Disposition: Home - Self-Care Reason For Visit: PALPITATIONS Discharge Diagnosis: Hypokalemia Palpitation Tachycardia Condition on Discharge: Good Activity: Resume your previous activity Non-emergency contact: Primary Care Provider Call non-emergency contact if: you have any medication questions and your symptoms worsen Follow-up/Referrals: Ana Luisa Singletary DO [Primary Care Provider] - Diet: Heart Healthy Addtl Attending Provider Instructions: Follow-up with your primary care physician within a week time and likely you will need labs CBC/CMP/magnesium/phosphorus. Your evaluated by cardiology while in hospital, follow-up with cardiology in 2 to 4 weeks time upon discharge, you will likely need outpatient ambulatory EKG monitoring. Recommend that you stop smoking. You will need routine surveillance monitoring for the enlarged ascending aorta every 2 years. Follow-up with your cardiology upon discharge. New medications has been added this admission which are metoprolol and potassium tablet. Take your medications as prescribed. Please make sure that you are able to get your medications today by calling your pharmacy before you leave the hospital so that your treatment continuity is not broken. Pending Studies at Discharge: No Stand-Alone Forms: My [employer], Smoking Cessation Medications and [place] Order Prescriptions: New metoprolol succinate 25 mg Tablet Extended Release 24 Hr 25 mg PO QAM Qty: 30 0RF potassium chloride 10 mEq Tablet,Er Particles/Crystals 10 meq PO DAILY Qty: 30 0RF Continued hydrochlorothiazide 12.5 mg capsule 12.5 mg PO QAM ibuprofen 600 mg tablet 600 mg PO TID PRN (Reason: Pain (Scale Score 1-3)) albuterol sulfate 90 mcg/actuation HFA aerosol inhaler 2 puff INHALATION Q4 PRN (Reason: Wheezing) Anoro Ellipta 62.5-25 mcg/actuation blister with device 1 inh INHALATION QAM Discharge Orders: Discharge Order (Routine); Ordered 11/28/24 Ordered By: Catracho Coley Admission Data Admit Date/Time: 11/28/24 03:47 Attending Provider: Catracho Coley Admit Provider: Vic Cuellar Primary Care Provider: Ana Luisa Singletary Other Providers: Vic Cuellar; Coby Flores; Tulio Pickens; Nicholas Castrejon; Gustavo Bradshaw; Bala Craig; Malik Kidd; Charisma Luna; Bianca Gibson; Janki Claire; Coby Torres; Karthik aJne; Rafael Velazquez; Trudy Morrison; India Richter; Ernestine Jiménez; Summer Gonzalez; Adeel Haji; Heather Fagan; Rhea Gerard
[2024-11-28 14:29] VITALS: BP 96/73; PULSE 84; O2SAT 94
--- NOTE | 2024-11-28 15:34 | Electrocardiogram Report ---
Test Reason : Blood Pressure : */* mmHG Vent. Rate : 94 BPM Atrial Rate : 94 BPM P-R Int : 170 ms QRS Dur : 62 ms QT Int : 342 ms P-R-T Axes : 61 25 56 degrees QTcB Int : 427 ms Normal sinus rhythm Low voltage QRS Borderline ECG When compared with ECG of 24-Aug-2017 09:55, No significant change was found Confirmed by Stephane Oakes ([id number]) on 11/28/2024 3:33:59 PM Referred By: REFERRED SELF Confirmed By: Stephane Oakes
[2024-11-29] MEDS ORDERED: POTASSIUM CHLORIDE 10 MEQ TABCR PO SCH (09:00)
[2024-11-29] MEDS ORDERED: METOPROLOL SUCC 25MG EXT REL TAB PO SCH (09:00)
== END 2024-11-28 14:30 | disposition home or self-care (01) ==
LOC: ED 20:17 → EDINP 20:17